=== PATIENT | female | born 1955 | race Caucasian/White ===

== ENCOUNTER 2018-01-26 00:26 | Emergency (ER) | payer MEDICARE, BC ==
[~2018-01-26] VITALS: Ht 162.6 cm; Wt 97.5 kg
[~2018-01-26 00:26] MED LIST: AMIT150T PO; BUPR-175 PO; HYDR10TA16 PO; LEXA20TA PO; LORA-392 PO; LORA10TA7 PO; LYRI150C PO; PREG75 PO; PRIN5TAB PO; REST15CA PO; WELL200T PO
[2018-01-26 00:33] VITALS: BP 156/72; PULSE 108; RESP 18; TEMP 98.1; O2SAT 98
[2018-01-26] MEDS ORDERED: HYDR-3583 PO (01:14)
[2018-01-26] MEDS ORDERED: BUPR150CR PO (01:14)
[2018-01-26] MEDS ORDERED: BIOT1000 PO (01:14)
[2018-01-26] MEDS ORDERED: DULO1CAP3 PO (01:14)
[2018-01-26] MEDS ORDERED: LISI-519 PO (01:14)
[2018-01-26] MEDS ORDERED: ASPI-183 PO (01:14)
[2018-01-26] MEDS ORDERED: ADVA250A INH (01:14)
[2018-01-26] MEDS ORDERED: DEXAMETHASONE SOD PHOS 4 MG/ML VIAL IM ONE (01:15)
[2018-01-26] MEDS ORDERED: KETOROLAC TROMETHAMINE 60 MG/2 ML (IM) VIAL IM ONE (01:15)
[2018-01-26] MEDS ORDERED: ORPHENADRINE INJ 60 MG/2 ML AMP IM ONE (01:15)
[2018-01-26 01:30] VITALS: BP 152/77; PULSE 98; RESP 16; O2SAT 97
--- NOTE | 2018-01-26 01:35 | RADRPT ---
EXAM DATE/TIME: 01/26/2018 01:14 [facility] COMPARISON: No previous studies available for comparison. INDICATIONS : Lower back pain. MEDICAL HISTORY : None. SURGICAL HISTORY : None. ENCOUNTER: Initial ACUITY: 1 day PAIN SCORE: 10/10 LOCATION: Lumbar spine. FINDINGS: 3 views of the lumbar spine demonstrate 5 nonrib-bearing lumbar vertebral bodies with mild rightward convex curvature. The bones are under mineralized. No fracture or compression deformity is present. T here is no anterolisthesis or retrolisthesis. Mild decreased disc height is present at L3-L4 and L4-L 5. There is facet hypertrophy at L4-L5. The visualized surrounding structures demonstrate no acute finding. Cholecystectomy clips are present . CONCLUSION: Mild dextroscoliosis with degenerative disc disease, as above. No acute lumbar spine abnormality is i dentified. Shaan Hurd MD on January 26, 2018 at 1:32 Board Certified Radiologist. This report was verified electronically.
[2018-01-26 02:01] LABS: BILIRUBIN, URINE NEG (NEG); BLOOD, URINE NEG (NEG); GLUCOSE,URINE NEG (NEG); KETONE, URINE NEG (NEG); NITRITE,URINE NEG (NEG); URINE COLOR YELLOW (YELLW/STRAW); URINE LEUKOCYTE ESTERASE TRACE (NEG)
[2018-01-26 02:14] LABS: SQUAMOUS EPITHELIAL CELL URINE 0-5 /hpf (0-5)
[2018-01-26 02:15] LABS: WBC, URINE 0-2 /hpf (0-5)
[2018-01-26 03:00] VITALS: BP 160/72; PULSE 102; RESP 16; O2SAT 96
[2018-01-26] MEDS ORDERED: ROBA750T PO (03:36)
[2018-01-26] MEDS ORDERED: MEDR4PAK PO (03:36)
[2018-01-26] MEDS ORDERED: TRAM50TA PO (03:36)
--- NOTE | 2018-01-26 03:40 | PD ---
HPI Chief Complaint: Pain: Acute or Chronic Time Seen by Provider: 01:05 Travel History International Travel<30 days: No Contact w/Intl Traveler<30days: No Traveled to known affect area: No History of Present Illness HPI 62-year-old female presents to the emergency department from home for evaluation of right-sided back pain since this past weekend. Patient states she has used ibuprofen and aspirin. Symptoms have been persistent and worsening. Patient denies any lower extremity paresthesia bladder or bowel dysfunction or saddle anesthesia. Patient denies any specific injury. Patient does report that approximately 2-3 weeks ago she did have a fall at that time she did sustain a wrist fracture and is being followed by an orthopedist in [place]. Patient's had no back pain since that time. Patient states she did take her prescription hydrocodone without symptom relief. Patient decided to drive herself to the emergency department for chronic pain exacerbation. The patient rates her pain 10/10 in intensity. Patient denies any fever chills nausea vomiting dysuria frequency urgency flank pain or hematuria. Patient denies any chest pain palpitations shortness of breath or abdominal pain. PFSH Past Medical History Narrative Medical Anxiety depression COPD left wrist fracture hypertension migraines cholecystectomy appendectomy hysterectomy; nursing notes reviewed Anxiety: Yes Depression: Yes COPD: Yes Diminished Hearing: No Fibromyalgia: Yes Hypertension: Yes Migraines: Yes Tetanus Vaccination: > 5 Years Influenza Vaccination: Yes : 2 Para: 2 Past Surgical History Abdominal Surgery: Yes (BENIGN MASS REMOVED) Appendectomy: Yes Cholecystectomy: Yes Hysterectomy: Yes Other Surgery: Yes (EXPLORATORY LAP) Social History Alcohol Use: No Tobacco Use: No Substance Use: No Allergies-Medications (Allergen,Severity, Reaction): Coded Allergies: levofloxacin (Unverified Allergy, Severe, Rash, 07/07/17) Reported Meds & Prescriptions Reported Meds & Active Scripts Active Medrol Dosepak (Methylprednisolone) 4 Mg Dspk 4 Mg PO DIRECTED Per Pharmacist direction Robaxin (Methocarbamol) 750 Mg Tab 750 Mg PO Q6HR Tramadol (Tramadol HCl) 50 Mg Tab 50 Mg PO Q6H PRN Reported Duloxetine DR (Duloxetine HCl) 60 Mg Capdr 60 Mg PO DAILY Advair Diskus Inh (Fluticasone-Salmeterol Inh) 250-50 Mcg/Blist Aer 1 Puff INH BID Rinse mouth after use. Aspirin 325 Mg Tab 325 Mg PO DAILY Biotin 1 Mg Tab 1,000 Mg PO DAILY Lisinopril 5 Mg Tab 5 Mg PO DAILY PRN Hydrocodone-Acetaminophen 10-325 mg Tab 1 Tab PO Q4H PRN Wellbutrin SR 12 HR (Bupropion HCl) 150 Mg Tab 150 Mg PO DAILY Review of Systems Except as stated in HPI: all other systems reviewed are Neg General / Constitutional: No: Fever, Chills HENT: No: Congestion Cardiovascular: No: Chest Pain or Discomfort Respiratory: No: Shortness of Breath Gastrointestinal: No: Nausea, Abdominal Pain Genitourinary: No: Dysuria, Flank Pain Musculoskeletal: Positive: Myalgias, Arthralgias, Pain (Right-sided low back pain) Skin: No Rash Neurologic: No: Weakness Psychiatric: No: Anxiety Hematologic/Lymphatic: No: Lymph Node Enlargement Physical Exam Narrative GENERAL: Well-developed well-nourished female in apparent discomfort no respiratory distress; GCS 15 SKIN: Warm and dry. HEAD: Atraumatic. Normocephalic. EYES: Pupils equal and round. No scleral icterus. No injection or drainage. ENT: No nasal bleeding or discharge. Mucous membranes pink and moist. NECK: Trachea midline. No JVD. CARDIOVASCULAR: Regular rate and rhythm. RESPIRATORY: No accessory muscle use. Clear to auscultation. Breath sounds equal bilaterally. GASTROINTESTINAL: Abdomen soft, non-tender, nondistended. Hepatic and splenic margins not palpable. MUSCULOSKELETAL: Extremities without clubbing, cyanosis, or edema. No obvious deformities. Negative straight leg raising bilaterally. Tenderness to palpation along the right SI joint and over the lower lumbar spine. No soft tissue swelling redness induration or fluctuance or ecchymosis noted. Mild right flank tenderness to percussion. NEUROLOGICAL: Awake and alert. No obvious cranial nerve deficits. Motor grossly within normal limits. Five out of 5 muscle strength in the arms and legs. DTRs 2+ and equal without clonus. Normal speech. PSYCHIATRIC: Appropriate mood and affect; insight and judgment normal. Data Data Last Documented VS Vital Signs Date Time Temp Pulse Resp B/P (MAP) Pulse Ox O2 Delivery O2 Flow Rate FiO2 01/26/18 03:59 01/26/18 03:00 102 16 96 Room Air 01/26/18 00:33 98.1 Orders Orders Spine, Lumbar - Ltd (Ap & Lat) (01/26/18 ) Dexamethasone Inj (Decadron Inj) (01/26/18 01:15) Ketorolac Inj (Toradol Inj) (01/26/18 01:15) Orphenadrine Inj (Norflex Inj) (01/26/18 01:15) Urinalysis - C+S If Indicated (01/26/18 01:06) Ct Abd/Pel W/O Iv Contrast (01/26/18 ) Ed Discharge Order (01/26/18 03:50) Labs Laboratory Tests Test 01/26/18 01:00 Urine Collection Type CLEAN CATCH Urine Color YELLOW Urine Turbidity CLEAR Urine pH 7.0 Urine Specific [place] 1.010 Urine Protein NEG mg/dL Urine Glucose (UA) NEG mg/dL Urine Ketones NEG mg/dL Urine Occult Blood NEG Urine Nitrite NEG Urine Bilirubin NEG Urine Urobilinogen 0.2 MG/DL Urine Leukocyte Esterase TRACE Urine WBC 0-2 /hpf Urine Squamous Epithelial Cells 0-5 /hpf Microscopic Urinalysis Comment CULT NOT INDICATED MDM Medical Decision Making Medical Screen Exam Complete: Yes Emergency Medical Condition: Yes Medical Record Reviewed: Yes Interpretation(s) UA: grossly wnl Last Impressions Lumbar Spine X-Ray 01/26/18 0000 Signed Impressions: Service Date/Time: Friday, January 26, 2018 01:14 - CONCLUSION: Mild dextroscoliosis with degenerative disc disease, as above. No acute lumbar spine abnormality is identified. Shaan Hurd MD Abdomen/Pelvis CT 01/26/18 0000 Signed Impressions: Service Date/Time: Friday, January 26, 2018 03:02 - CONCLUSION: 1. There are 2 nonobstructing right renal stones measuring up to 7 mm. No ureteral stones are present and there are no findings to indicate urinary obstruction. 2. There is an indeterminant 1.7 cm right lobe liver lesion that does not meet criteria for a cyst. Suggest correlating with prior imaging studies. If none are available suggest further characterization with liver protocol CT or MRI. 3. Nonacute findings include large hiatal hernia and mild atherosclerotic disease. Shaan Hurd MD Vital Signs Date Time Temp Pulse Resp B/P (MAP) Pulse Ox O2 Delivery O2 Flow Rate FiO2 01/26/18 03:59 01/26/18 03:00 102 16 160/72 (101) 96 Room Air 01/26/18 02:50 16 01/26/18 01:30 98 16 152/77 (102) 97 Room Air 01/26/18 00:48 16 01/26/18 00:33 98.1 108 18 156/72 (100) 98 Differential Diagnosis sciatica, DDD, HNP, sacroiliitis, renal colic, uti, aaa, no findings for cauda equina Narrative Course Patient administered Toradol 60 mg IM, decadron 8 mg IM and norflex 60 mg IM clinically improved; ua grossly wnl CT a/p: no obstructive uropathy Patient stable for outpatient management Procedures Procedure Narrative Last Impressions Lumbar Spine X-Ray 01/26/18 0000 Signed Impressions: Service Date/Time: Friday, January 26, 2018 01:14 - CONCLUSION: Mild dextroscoliosis with degenerative disc disease, as above. No acute lumbar spine abnormality is identified. Shaan Hurd MD Vital Signs Date Time Temp Pulse Resp B/P (MAP) Pulse Ox O2 Delivery O2 Flow Rate FiO2 01/26/18 03:00 102 16 160/72 (101) 96 Room Air 01/26/18 02:50 16 01/26/18 01:30 98 16 152/77 (102) 97 Room Air 01/26/18 00:48 16 01/26/18 00:33 98.1 108 18 156/72 (100) 98 UA: grossly wnl Diagnosis Primary Impression: Sciatica Qualified Codes: M54.31 - Sciatica, right side Additional Impressions: Nephrolithiasis Abnormal CT scan, liver Referrals: Primary Care Physician 1 day Patient Instructions: General Instructions Additional Instructions: Take medications as prescribed If taking tramadol for pain do not take hydrocodone Apply moist heat intermittently to low back Follow-up with your primary care provider as planned 1 day Return to the emergency department for any concerns or change in condition Med/Other Pt SpecificInfo: Prescription(s) given Scripts Methylprednisolone Dosepak (Medrol Dosepak) 4 Mg Dspk 4 MG PO DIRECTED, #1 DSPK 0 Refills Per Pharmacist direction Prov: Debra Crook MD 01/26/18 Methocarbamol (Robaxin) 750 Mg Tab 750 MG PO Q6HR for Muscle Spasm, #10 TAB 0 Refills Prov: Debra Crook MD 01/26/18 Tramadol (Tramadol) 50 Mg Tab 50 MG PO Q6H Y for PAIN, #7 TAB 0 Refills Prov: Debra Crook MD 01/26/18 Disposition: 01 DISCHARGE HOME Condition: Stable Debra Crook MD Jan 26, 2018 03:40
--- NOTE | 2018-01-26 03:47 | RADRPT ---
EXAM DATE/TIME: 01/26/2018 03:02 [facility] COMPARISON: No previous studies available for comparison. INDICATIONS : Right flank pain. ORAL CONTRAST: No oral contrast ingested. RADIATION DOSE: 16.46 CTDIvol (mGy) MEDICAL HISTORY : Hypertension. Chronic obstructive pulmonary disease. SURGICAL HISTORY : Appendectomy. Cholecystectomy.Hysterectomy. ENCOUNTER: Initial ACUITY: 1 day PAIN SCALE: 10/10 LOCATION: Right flank TECHNIQUE: Volumetric scanning of the abdomen and pelvis was performed. Using automated exposure control and ad justment of the mA and/or kV according to patient size, radiation dose was kept as low as reasonably achievable to obtain optimal diagnostic quality images. DICOM format image data is available electro nically for review and comparison. FINDINGS: LOWER LUNGS: The visualized lower lungs are clear. LIVER: There is a low-density lesion in the right lobe measuring 10 mm with density measurements consistent with a cyst and an additional low-density lesion in the right posterior liver measuring 17 mm with [place] measurements of 24. Multiple cholecystectomy clips are present in the gallbladder fossa. Th ere is no dilation of the biliary tree. SPLEEN: Normal size without lesion. PANCREAS: Within normal limits. KIDNEYS: Normal in size and shape. There is no mass or hydronephrosis. There are 2 nonobstructing right renal stones measuring 7 mm and 3 mm. ADRENAL GLANDS: Within normal limits. VASCULAR: There is no aortic aneurysm. There is mild atherosclerotic disease. BOWEL/MESENTERY: The stomach, small bowel, and colon demonstrate no acute abnormality. There is no free intraperitone al air or fluid. A large hiatal hernia is present. ABDOMINAL WALL: Within normal limits. RETROPERITONEUM: There is no lymphadenopathy. BLADDER: No wall thickening or mass. REPRODUCTIVE: Uterus is absent. INGUINAL: There is no lymphadenopathy or hernia. MUSCULOSKELETAL: There are degenerative changes of the lumbar spine. No acute osseous abnormality is seen. There is a bone island in the left sacrum. CONCLUSION: 1. There are 2 nonobstructing right renal stones measuring up to 7 mm. No ureteral stones are present and there are no findings to indicate urinary obstruction. 2. There is an indeterminant 1.7 cm right lobe liver lesion that does not meet criteria for a cyst. S uggest correlating with prior imaging studies. If none are available suggest further characterization with liver protocol CT or MRI. 3. Nonacute findings include large hiatal hernia and mild atherosclerotic disease. Shaan Hurd MD on January 26, 2018 at 3:39 Board Certified Radiologist. This report was verified electronically.
== END 2018-01-26 04:01 | disposition home or self-care (01) ==
LOC: PHED 00:26
DX: M54.31 Sciatica, right side (principal); N20.0 Calculus of kidney; R93.2 Abnormal findings on diagnostic imaging of liver and biliary tract; I10 Essential (primary) hypertension; J44.9 Chronic obstructive pulmonary disease, unspecified; M79.7 Fibromyalgia; F41.9 Anxiety disorder, unspecified; F32.9 Major depressive disorder, single episode, unspecified; Z88.8 Allergy status to other drugs, medicaments and biological substances; Z79.82 Long term (current) use of aspirin; Z79.899 Other long term (current) drug therapy
CPT/HCPCS: 72100; 74176; 81001; 96372; 99285; J1100; J1885; J2360

== ENCOUNTER 2018-01-26 18:12 | Inpatient (IN) | payer MEDICARE, BC ==
[~2018-01-26] VITALS: Ht 162.6 cm; Wt 72.5 kg
[~2018-01-26 18:12] MED LIST changes: +ADVA250A INH; +ASPI-183 PO; +BIOT1000 PO; +BUPR150CR PO; +DULO1CAP3 PO; +HYDR-3583 PO; +LISI-519 PO; +MEDR4PAK PO; +ROBA750T PO; +TRAM50TA PO
[2018-01-26 18:59] VITALS: BP 188/88; PULSE 112; RESP 24; TEMP 98.7; O2SAT 98
[2018-01-26 21:35] VITALS: BP 168/86; PULSE 104; RESP 22; O2SAT 98
[2018-01-26] MEDS ORDERED: ONDANSETRON HCL 4 MG/2 ML VIAL IV PUSH ONE (21:45)
[2018-01-26] MEDS ORDERED: SODIUM CHLOR 0.9% 1000 ML INJ 1,000 ML IV ONE (21:45)
[2018-01-26] MEDS ORDERED: MORPHINE SULFATE 4 MG/ML INJ IV PUSH ONE (21:45)
--- NOTE | 2018-01-26 21:46 | PD ---
HPI Chief Complaint: Back/ Neck Pain or Injury Time Seen by Provider: 21:24 Travel History International Travel<30 days: No Contact w/Intl Traveler<30days: No Traveled to known affect area: No History of Present Illness HPI 62-year-old white female presents emergency department with complaints of right lower back pain with radiation into her right leg. The patient states that her pain is been present now for the past 4 days. It has been nontraumatic. Worse with bending and movement. She was seen at the emergency department at [facility] last evening around 12:30 PM. She had a CAT scan of the abdomen as well as x-rays. Patient was discharged home with steroids, and Ultram. The patient states that she is taking her medications but has had no relief. She states the pain is severe. She has associated nausea but no vomiting. She states the pain is making her feel sick. She denies any fever chills, abdominal pain, diarrhea, dysuria, frequency or hematuria. No rashes or lesions. PFSH Past Medical History Anxiety: Yes Depression: Yes COPD: Yes Diminished Hearing: No Fibromyalgia: Yes Hypertension: Yes Migraines: Yes ?: Not : 2 Para: 2 Past Surgical History Abdominal Surgery: Yes (BENIGN MASS REMOVED) Appendectomy: Yes Cholecystectomy: Yes Hysterectomy: Yes Tonsillectomy: Yes Other Surgery: Yes (EXPLORATORY LAP) Social History Alcohol Use: Yes ("MAYBE ONCE A MONTH") Tobacco Use: No Substance Use: No Allergies-Medications (Allergen,Severity, Reaction): Coded Allergies: levofloxacin (Unverified Allergy, Severe, Rash, 07/07/17) Reported Meds & Prescriptions Reported Meds & Active Scripts Active Medrol Dosepak (Methylprednisolone) 4 Mg Dspk 4 Mg PO DIRECTED Per Pharmacist direction Robaxin (Methocarbamol) 750 Mg Tab 750 Mg PO Q6HR Tramadol (Tramadol HCl) 50 Mg Tab 50 Mg PO Q6H PRN Reported Duloxetine DR (Duloxetine HCl) 60 Mg Capdr 60 Mg PO DAILY Advair Diskus Inh (Fluticasone-Salmeterol Inh) 250-50 Mcg/Blist Aer 1 Puff INH BID Rinse mouth after use. Aspirin 325 Mg Tab 325 Mg PO DAILY Biotin 1 Mg Tab 1,000 Mg PO DAILY Lisinopril 5 Mg Tab 5 Mg PO DAILY PRN Hydrocodone-Acetaminophen 10-325 mg Tab 1 Tab PO Q4H PRN Wellbutrin SR 12 HR (Bupropion HCl) 150 Mg Tab 150 Mg PO DAILY Review of Systems Except as stated in HPI: all other systems reviewed are Neg Physical Exam Narrative GENERAL: Well-developed, well-nourished in no apparent distress. Nontoxic appearing. HEAD: Normocephalic, atraumatic. EYES: Pupils equal round and reactive. Extraocular motions intact. No scleral icterus. No injection or drainage. ENT: Nose clear. Throat without erythema, tonsillar hypertrophy or exudate. Uvula midline. Airway patent. NECK: Trachea midline. Supple, nontender, moves head freely. No central bony tenderness or spasm. CARDIOVASCULAR: Regular rate and rhythm without murmurs, gallops, or rubs. RESPIRATORY: Clear to auscultation. Breath sounds equal bilaterally. No wheezes , rales, or rhonchi. GASTROINTESTINAL: Abdomen soft, non-tender, nondistended. No hepato-splenomegaly , or palpable masses. No guarding. EXTREMITIES: No clubbing, cyanosis, or edema. No joint tenderness. BACK: Patient has pain in the right SI and right buttocks. She has a positive straight leg raise on the right. She has intact sensation with good distal pulses. No saddle anesthesia. Without deformity. No flank tenderness. NEUROLOGICAL: Awake, alert and oriented x 3 .Cranial nerves grossly intact. Motor and sensory grossly within normal limits. Normal speech. No central bony tenderness to palpation of the dorsal lumbar spine. Data Data Last Documented VS Vital Signs Date Time Temp Pulse Resp B/P (MAP) Pulse Ox O2 Delivery O2 Flow Rate FiO2 01/26/18 21:35 104 22 168/86 (113) 98 Room Air 01/26/18 18:59 98.7 Orders Orders Complete Blood Count With Diff (01/26/18 21:34) Basic Metabolic Panel (Bmp) (01/26/18 21:34) Ua Includes Microscopic (01/26/18 21:34) Ct Lumb Spine W/O Contrast (01/26/18 21:34) Sodium Chlor 0.9% 1000 Ml Inj (Ns 1000 M (01/26/18 21:45) Ondansetron Inj (Zofran Inj) (01/26/18 21:45) Morphine Inj (Morphine Inj) (01/26/18 21:45) Urine Culture (01/26/18 21:55) Electrocardiogram (01/26/18 22:44) Prothrombin Time / Inr (Pt) (01/26/18 22:44) Act Partial Throm Time (Ptt) (01/26/18 22:44) Ecg Monitoring (01/26/18 22:44) Type And Screen (01/26/18 22:44) Hemoglobin (Hgb) (01/26/18 22:56) Hematocrit (Hct) (01/26/18 22:56) Red Blood Cells (Rbc) (01/26/18 23:28) Pantoprazole Inj (Protonix Inj) (01/26/18 23:45) Admit Order (Ed Use Only) (01/26/18 ) Clinical Quality Manager / Telemetry DARREN.Q8H (01/26/18 23:41) Vital Signs (Adult) Q4H (01/26/18 23:41) Diet Npo (01/27/18 Breakfast) Activity Oob With Assistance (01/26/18 23:41) Notify Dr: Other (01/26/18 23:41) Labs Laboratory Tests Test 01/26/18 21:45 01/26/18 21:55 01/26/18 23:00 White Blood Count 13.7 TH/MM3 Red Blood Count 2.57 MIL/MM3 Hemoglobin 5.9 GM/DL 5.9 GM/DL Hematocrit 18.3 % 19.1 % Mean Corpuscular Volume 71.5 FL Mean Corpuscular Hemoglobin 22.8 PG Mean Corpuscular Hemoglobin Concent 31.9 % Red Cell Distribution Width 18.5 % Platelet Count 442 TH/MM3 Mean Platelet Volume 7.1 FL Neutrophils (%) (Auto) 89.7 % Lymphocytes (%) (Auto) 6.5 % Monocytes (%) (Auto) 3.8 % Eosinophils (%) (Auto) 0.0 % Basophils (%) (Auto) 0.0 % Neutrophils # (Auto) 12.3 TH/MM3 Lymphocytes # (Auto) 0.9 TH/MM3 Monocytes # (Auto) 0.5 TH/MM3 Eosinophils # (Auto) 0.0 TH/MM3 Basophils # (Auto) 0.0 TH/MM3 CBC Comment AUTO DIFF Differential Comment AUTO DIFF CONFIRMED Platelet Estimate HIGH Platelet Morphology Comment NORMAL Ovalocytes 1+ Blood Urea Nitrogen 16 MG/DL Creatinine 1.04 MG/DL Random Glucose 106 MG/DL Calcium Level 8.8 MG/DL Sodium Level 143 MEQ/L Potassium Level 3.3 MEQ/L Chloride Level 109 MEQ/L Carbon Dioxide Level 25.6 MEQ/L Anion Gap 8 MEQ/L Estimat Glomerular Filtration Rate 53 ML/MIN Urine Color YELLOW Urine Turbidity CLEAR Urine pH 6.0 Urine Specific [place] 1.025 Urine Protein TRACE mg/dL Urine Glucose (UA) NEG mg/dL Urine Ketones NEG mg/dL Urine Occult Blood NEG Urine Nitrite NEG Urine Bilirubin NEG Urine Urobilinogen LESS THAN 2.0 MG/DL Urine Leukocyte Esterase LARGE Urine RBC 6 /hpf Urine WBC 19 /hpf Urine Squamous Epithelial Cells 4 /hpf Urine Mucus FEW /lpf Microscopic Urinalysis Comment CULTURE INDICATED Prothrombin Time 10.5 SEC Prothromb Time International Ratio 1.0 RATIO Activated Partial Thromboplast Time 26.4 SEC [facility] Medical Decision Making Medical Screen Exam Complete: Yes Emergency Medical Condition: Yes Medical Record Reviewed: Yes Interpretation(s) EKG: Sinus tachycardia with a ventricular rate of 114. Diffuse nonspecific ST- T wave changes. No ST elevation. Normal intervals. Laboratory Tests Test 01/26/18 21:45 01/26/18 21:55 01/26/18 23:00 White Blood Count 13.7 TH/MM3 Red Blood Count 2.57 MIL/MM3 Hemoglobin 5.9 GM/DL 5.9 GM/DL Hematocrit 18.3 % 19.1 % Mean Corpuscular Volume 71.5 FL Mean Corpuscular Hemoglobin 22.8 PG Mean Corpuscular Hemoglobin Concent 31.9 % Red Cell Distribution Width 18.5 % Platelet Count 442 TH/MM3 Mean Platelet Volume 7.1 FL Neutrophils (%) (Auto) 89.7 % Lymphocytes (%) (Auto) 6.5 % Monocytes (%) (Auto) 3.8 % Eosinophils (%) (Auto) 0.0 % Basophils (%) (Auto) 0.0 % Neutrophils # (Auto) 12.3 TH/MM3 Lymphocytes # (Auto) 0.9 TH/MM3 Monocytes # (Auto) 0.5 TH/MM3 Eosinophils # (Auto) 0.0 TH/MM3 Basophils # (Auto) 0.0 TH/MM3 CBC Comment AUTO DIFF Differential Comment AUTO DIFF CONFIRMED Platelet Estimate HIGH Platelet Morphology Comment NORMAL Ovalocytes 1+ Blood Urea Nitrogen 16 MG/DL Creatinine 1.04 MG/DL Random Glucose 106 MG/DL Calcium Level 8.8 MG/DL Sodium Level 143 MEQ/L Potassium Level 3.3 MEQ/L Chloride Level 109 MEQ/L Carbon Dioxide Level 25.6 MEQ/L Anion Gap 8 MEQ/L Estimat Glomerular Filtration Rate 53 ML/MIN Urine Color YELLOW Urine Turbidity CLEAR Urine pH 6.0 Urine Specific [place] 1.025 Urine Protein TRACE mg/dL Urine Glucose (UA) NEG mg/dL Urine Ketones NEG mg/dL Urine Occult Blood NEG Urine Nitrite NEG Urine Bilirubin NEG Urine Urobilinogen LESS THAN 2.0 MG/DL Urine Leukocyte Esterase LARGE Urine RBC 6 /hpf Urine WBC 19 /hpf Urine Squamous Epithelial Cells 4 /hpf Urine Mucus FEW /lpf Microscopic Urinalysis Comment CULTURE INDICATED Prothrombin Time 10.5 SEC Prothromb Time International Ratio 1.0 RATIO Activated Partial Thromboplast Time 26.4 SEC Differential Diagnosis MDM: High Differential diagnoses: AAA,Fracture, sprain, strain, HNP, nerve or vascular injury, epidural abscess, pilonidal cyst, pyelonephritis, UTI, nephrolithiasis, ureterolithiasis Narrative Course I have spoken with the body technician/painter regarding this patient. They will be able to do reconstruction images of the lumbar spine from her CAT scan of her abdomen and pelvis yesterday. IV access is obtained. We will perform routine laboratory tests including CBC, chemistry, UA. Patient is given Zofran 4 mg IV and 4 mg of morphine IV. The patient's hemoglobin is 5.9. Rectal exam was negative. Patient's repeat H& H does confirm a hemoglobin of 5.9. 2 units of packed red blood cells have been ordered. I have discussed the case with Dr. Singh who is agreed to admit the patient. She will go ahead and add in anemia evaluation laboratory testing prior to administration of blood. Patient continues to complain of pain. She is given 4 mg of morphine and 1 mg of Ativan IV. This is severe anemia, acute back pain Procedures EKG Prior to Arrival: No HemaPrompt Point of Care Internal Pos. & Neg. Controls: Passed Fecal Specimen Occult Blood: Negative Diagnosis Primary Impression: Severe anemia Additional Impression: Acute back pain Qualified Codes: M54.41 - Lumbago with sciatica, right side Condition: Stable Chidi Campo Jan 26, 2018 21:46
[2018-01-26 22:20] LABS: BILIRUBIN, URINE NEG (NEG); BLOOD, URINE NEG (NEG); GLUCOSE,URINE NEG (NEG); KETONE, URINE NEG (NEG); MUCUS URINE FEW /lpf (OCC); NITRITE,URINE NEG (NEG); SQUAMOUS EPITHELIAL CELL URINE 4 /hpf (0-5); URINE COLOR YELLOW (YELLW/STRAW); URINE LEUKOCYTE ESTERASE LARGE (NEG)
[2018-01-26 22:24] LABS: AUTOMATED NEUTROPHIL # 12.3 TH/MM3 (1.8-7.7); LYMPH % 6.5 % (9.0-44.0); LYMPHOCYTE # 0.9 TH/MM3 (1.0-4.8); MEAN CELL VOLUME 71.5 FL (80.0-100.0); MEAN CORPUSCULAR HEMOGLOBIN 22.8 PG (27.0-34.0); MEAN CORPUSCULAR HGB CONC 31.9 % (32.0-36.0); MEAN PLATELET VOLUME 7.1 FL (7.0-11.0); MONO % 3.8 % (0.0-8.0); MONOCYTE # 0.5 TH/MM3 (0-0.9); NEUT % 89.7 % (16.0-70.0); PLATELET COUNT 442 TH/MM3 (150-450); RED BLOOD COUNT 2.57 MIL/MM3 (4.00-5.30); RED CELL DISTRIBUTION WIDTH 18.5 % (11.6-17.2); WHITE BLOOD COUNT 13.7 TH/MM3 (4.0-11.0)
[2018-01-26 22:33] LABS: BICARBONATE 25.6 MEQ/L (21.0-32.0); CALCIUM 8.8 MG/DL (8.5-10.1); CREATININE 1.04 MG/DL (0.50-1.00)
[2018-01-26 22:42] LABS: HEMATOCRIT 18.3 % (35.0-46.0); HEMOGLOBIN 5.9 GM/DL (11.6-15.3)
--- NOTE | 2018-01-26 22:44 | RADRPT ---
EXAM DATE/TIME: 01/26/2018 03:02 [facility] COMPARISON: SPINE LUMBAR LTD (AP & LAT), January 26, 2018, 1:14. INDICATIONS : Lower back pain. RADIATION DOSE: ; Reconstructed from previous dataset, no dose MEDICAL HISTORY : Hypertension. Chronic obstructive pulmonary disease. Radiculopathy. SURGICAL HISTORY : Appendectomy. Cholecystectomy.Hysterectomy. ENCOUNTER: Initial ACUITY: 2 days PAIN SCALE: 7/10 LOCATION: Lumbar spine TECHNIQUE: Volumetric scanning of the lumbar spine was performed. Multiplanar reconstructions in the sagittal, coronal and oblique axial planes were performed. Using automated exposure control and adjustment of the mA and/or kV according to patient size, radiation dose was kept as low as reasonably achievable t o obtain optimal diagnostic quality images. DICOM format image data is available electronically for review and comparison. FINDINGS: There is normal alignment of vertebral bodies of the lumbar spine and preservation of vertebral body height. Minimal curvature towards the right. Evidence of osteopenia with mild vertical striations o f trabecular pattern. No evidence of fracture. There is a bone island in the left body of the sacru m adjacent to the 1st arcuate foramen. There is broad-based bulging or protrusion of the L3-4 disc c ausing moderate spinal stenosis with AP dimension of the thecal sac measuring 5 mm. This protrusion extends to the neural foramen on the right side. There is also mild central bulging of the L4-5 disc causing minimal flattening of the ventral thecal sac. CONCLUSION: 1. No evidence of compression deformity or spondylolisthesis. 2. Spinal stenosis at the L3-4 level due to a combination of central disc protrusion and facet joint hypertrophy. Benito Lee MD on January 26, 2018 at 22:41 Board Certified Radiologist. This report was verified electronically.
[2018-01-26 23:21] LABS: HEMATOCRIT 19.1 % (35.0-46.0); HEMOGLOBIN 5.9 GM/DL (11.6-15.3)
[2018-01-26 23:26] LABS: OVALOCYTES 1+ (NORMAL)
[2018-01-26 23:36] LABS: PROTHROMBIN TIME - PATIENT 10.5 SEC (9.8-11.6)
[2018-01-26] MEDS ORDERED: PANTOPRAZOLE SODIUM 40 MG VIAL IV PUSH ONE (23:45)
[2018-01-27] VITALS (18 sets, daily range): BP systolic 135–184; BP diastolic 68–100; PULSE 86–119; RESP 16–20; TEMP 98–98.5; O2SAT 93–98
[2018-01-27] MEDS ORDERED: LORazepam 2 MG/ML VIAL IV PUSH ONE
[2018-01-27] MEDS ORDERED: MORPHINE SULFATE 4 MG/ML INJ IV PUSH ONE
[2018-01-27] MEDS ORDERED: SENNOSIDES 8.6 MG TAB PO PRN (00:45)
[2018-01-27] MEDS ORDERED: BISACODYL 10 MG SUPP RECTAL PRN (00:45)
[2018-01-27] MEDS ORDERED: MAGNESIUM HYDROXIDE SUSP 30 ML CUP PO PRN (00:45)
[2018-01-27] MEDS ORDERED: ACETAMINOPHEN 325 MG TAB PO PRN (00:45)
[2018-01-27] MEDS ORDERED: LACTULOSE SYRUP 20 GM/30 ML CUP PO PRN (00:45)
[2018-01-27] MEDS ORDERED: SODIUM CHLORIDE 0.9% FLUSH 10 ML FLUSH IV FLUSH PRN (00:45)
[2018-01-27] MEDS ORDERED: NALOXONE HCL 0.4 MG/ML AMP IV PUSH PRN (00:45)
[2018-01-27 00:54] LABS: % SATURATION IRON PROFILE 2.4 % (20-50); IRON (FE) 10 MCG/DL (50-170); TOTAL IRON BINDING CAPACITY 413 MCG/DL (250-450)
[2018-01-27] MEDS ORDERED: POTASSIUM CHLORIDE 20 MEQ CONTROLLED RELEASE TAB PO ONE (03:15)
--- NOTE | 2018-01-27 03:21 | HHI.HP ---
[facility] Licha Duncan MD Admission Diagnosis SEVERE ANEMA, ACUTE BACK PAIN Diagnoses: Travel History International Travel<30 Days: No Contact w/Intl Traveler <30 Da: No Traveled to Known Affected Are: No History of Present Illness 62-year-old female with a past medical history significant for COPD, aortic stenosis, fibromyalgia, hypertension, GERD and migraines presents to the emergency department for evaluation of back pain. The patient reports she has had severe right-sided lower back pain that radiates down her right buttock and right leg for approximately 3 days. She reports associated insomnia secondary to the pain. She is moaning and writhing around in her bed. Lose all 4 extremities spontaneously. The patient was found to be severely anemic. She denies any weakness or dizziness. No shortness of breath or chest pain. Denies any dark tarry stools. Hemoccult negative in the ED. Does endorse a nosebleed 2 nights ago. Takes aspirin 325 daily. Denies nausea/vomiting. No lateralizing signs/symptoms. Review of Systems Except as stated in HPI: all other systems reviewed are Neg Past Family Social History Past Medical History COPD Aortic stenosis Fibromyalgia Hypertension GERD Migraines Past Surgical History Tonsillectomy Cholecystectomy Total abdominal hysterectomy Appendectomy Exploratory laparotomy Right hip repair Reported Medications Reported Meds & Active Scripts Active Medrol Dosepak (Methylprednisolone) 4 Mg Dspk 4 Mg PO DIRECTED Per Pharmacist direction Robaxin (Methocarbamol) 750 Mg Tab 750 Mg PO Q6HR Tramadol (Tramadol HCl) 50 Mg Tab 50 Mg PO Q6H PRN Reported Duloxetine DR (Duloxetine HCl) 60 Mg Capdr 60 Mg PO DAILY Advair Diskus Inh (Fluticasone-Salmeterol Inh) 250-50 Mcg/Blist Aer 1 Puff INH BID Rinse mouth after use. Aspirin 325 Mg Tab 325 Mg PO DAILY Biotin 1 Mg Tab 1,000 Mg PO DAILY Lisinopril 5 Mg Tab 5 Mg PO DAILY PRN Hydrocodone-Acetaminophen 10-325 mg Tab 1 Tab PO Q4H PRN Wellbutrin SR 12 HR (Bupropion HCl) 150 Mg Tab 150 Mg PO DAILY Allergies: Coded Allergies: levofloxacin (Unverified Allergy, Severe, Rash, 07/07/17) Family History Father with CAD Social History Rare alcohol. Denies alcohol or illicit drugs. Physical Exam Vital Signs Vital Signs Date Time Temp Pulse Resp B/P (MAP) Pulse Ox O2 Delivery O2 Flow Rate FiO2 01/27/18 03:01 100 18 170/84 96 01/27/18 02:37 105 18 167/87 96 01/27/18 02:25 98.5 112 18 171/87 95 01/27/18 02:18 102 18 174/83 98 01/27/18 00:00 111 20 184/82 (116) 97 Room Air 01/26/18 21:35 104 22 168/86 (113) 98 Room Air 01/26/18 18:59 98.7 112 24 188/88 (121) 98 Physical Exam GENERAL: female, lying in bed, moaning SKIN: No rashes, ecchymoses or lesions. Cool and dry. HEAD: Atraumatic. Normocephalic. No temporal or scalp tenderness. EYES: Pupils equal round and reactive. Extraocular motions intact. No scleral icterus. No injection or drainage. ENT: Nose without bleeding, purulent drainage or septal hematoma. Throat without erythema, tonsillar hypertrophy or exudate. Uvula midline. Airway patent. NECK: Trachea midline. No JVD or lymphadenopathy. Supple, nontender, no meningeal signs. CARDIOVASCULAR: Regular rate and rhythm without murmurs, gallops, or rubs. RESPIRATORY: Clear to auscultation. Breath sounds equal bilaterally. No wheezes , rales, or rhonchi. GASTROINTESTINAL: Abdomen soft, non-tender, nondistended. No hepato-splenomegaly , or palpable masses. No guarding. MUSCULOSKELETAL: Extremities without clubbing, cyanosis, or edema. No joint tenderness, effusion, or edema noted. No calf tenderness. Negative Homans sign bilaterally. NEUROLOGICAL: Awake and alert. Cranial nerves II through XII intact. Motor and sensory grossly within normal limits. Normal speech. Patient's participation in the strength exam is questionable therefore I am unable to evaluate strength at this time. Moves all 4 extremities spontaneously. Laboratory Laboratory Tests Test 01/26/18 21:45 01/26/18 21:55 01/26/18 23:00 White Blood Count 13.7 Red Blood Count 2.57 Hemoglobin 5.9 5.9 Hematocrit 18.3 19.1 Mean Corpuscular Volume 71.5 Mean Corpuscular Hemoglobin 22.8 Mean Corpuscular Hemoglobin Concent 31.9 Red Cell Distribution Width 18.5 Platelet Count 442 Mean Platelet Volume 7.1 Neutrophils (%) (Auto) 89.7 Lymphocytes (%) (Auto) 6.5 Monocytes (%) (Auto) 3.8 Eosinophils (%) (Auto) 0.0 Basophils (%) (Auto) 0.0 Neutrophils # (Auto) 12.3 Lymphocytes # (Auto) 0.9 Monocytes # (Auto) 0.5 Eosinophils # (Auto) 0.0 Basophils # (Auto) 0.0 CBC Comment AUTO DIFF Differential Comment AUTO DIFF CONFIRMED Platelet Estimate HIGH Platelet Morphology Comment NORMAL Ovalocytes 1+ Blood Urea Nitrogen 16 Creatinine 1.04 Random Glucose 106 Calcium Level 8.8 Sodium Level 143 Potassium Level 3.3 Chloride Level 109 Carbon Dioxide Level 25.6 Anion Gap 8 Estimat Glomerular Filtration Rate 53 Iron Level 10 Total Iron Binding Capacity 413 Percent Iron Saturation 2.4 Vitamin B12 Level 280 Urine Color YELLOW Urine Turbidity CLEAR Urine pH 6.0 Urine Specific [place] 1.025 Urine Protein TRACE Urine Glucose (UA) NEG Urine Ketones NEG Urine Occult Blood NEG Urine Nitrite NEG Urine Bilirubin NEG Urine Urobilinogen LESS THAN 2.0 Urine Leukocyte Esterase LARGE Urine RBC 6 Urine WBC 19 Urine Squamous Epithelial Cells 4 Urine Mucus FEW Microscopic Urinalysis Comment CULTURE INDICATED Blood Smear Pathologist Review Prothrombin Time 10.5 Prothromb Time International Ratio 1.0 Activated Partial Thromboplast Time 26.4 Date/Time Source Procedure Growth Status 01/26/18 21:55 Urine Clean Catch Urine Culture Pending Received Result Diagram: 01/26/18 2300 01/26/185 Caprini VTE Risk Assessment Caprini VTE Risk Assessment: Mod/High Risk (score >= 2) Caprini Risk Assessment Model Point Value = 1 Point Value = 2 Point Value = 3 Point Value = 5 Age 41-60 Minor surgery BMI > 25 kg/m2 Swollen legs Varicose veins or History of unexplained or recurrent spontaneous Oral contraceptives or hormone replacement Sepsis (< 1 month) Serious lung disease, including pneumonia (< 1 month) Abnormal pulmonary function Acute myocardial infarction Congestive heart failure (< 1 month) History of inflammatory bowel disease Medical patient at bed rest Age 61-74 Arthroscopic surgery Major open surgery (> 45 min) Laparoscopic surgery (> 45 min) Malignancy Confined to bed (> 72 hours) Immobilizing plaster cast Central venous access Age >= 75 History of VTE Family history of VTE Factor V Leiden Prothrombin [id number] Lupus anticoagulant Anticardiolipin antibodies Elevated serum homocysteine Heparin-induced thrombocytopenia Other congenital or acquired thrombophilia Stroke (< 1 month) Elective arthroplasty Hip, pelvis, or leg fracture Acute spinal cord injury (< 1 month) Prophylaxis Regimen Total Risk Factor Score Risk Level Prophylaxis Regimen 0-1 Low Early ambulation 2 Moderate Order ONE of the following: *Sequential Compression Device (SCD) *Heparin 5000 units SQ BID 3-4 Higher Order ONE of the following medications: *Heparin 5000 units SQ TID *Enoxaparin/Lovenox 40 mg SQ daily (WT < 150 kg, CrCl > 30 mL/min) *Enoxaparin/Lovenox 30 mg SQ daily (WT < 150 kg, CrCl > 10-29 mL/min) *Enoxaparin/Lovenox 30 mg SQ BID (WT < 150 kg, CrCl > 30 mL/min) AND/OR *Sequential Compression Device (SCD) 5 or more Highest Order ONE of the following medications: *Heparin 5000 units SQ TID (Preferred with Epidurals) *Enoxaparin/Lovenox 40 mg SQ daily (WT < 150 kg, CrCl > 30 mL/min) *Enoxaparin/Lovenox 30 mg SQ daily (WT < 150 kg, CrCl > 10-29 mL/min) *Enoxaparin/Lovenox 30 mg SQ BID (WT < 150 kg, CrCl > 30 mL/min) AND *Sequential Compression Device (SCD) Assessment and Plan Assessment and Plan Assessment/plan: 1. Severe anemia H&H 5.9/18.3 Transfuse 2 units packed red blood cells Monitor H&H Iron studies, B12 pending Peripheral smear pending Pending results of initial studies, patient may benefit from hematology consult 2. Low back pain/sciatica Percocet for pain, Flexeril CT of the lumbar spine showed no evidence of compression deformity or spondylolisthesis Central disc protrusion at the level of L3-4 She will need outpatient follow-up, explained to the patient who expressed understanding 3. Hypertension/fibromyalgia/GERD/COPD Continue home medications FEN Heart healthy diet Electrolytes: Status post repletion of potassium, follow-up BMP Holding pharmacologic anticoagulation for severe anemia Physician Certification 2 Midnight Certification Type: Admission for Inpatient Services Order for Inpatient Services The services are ordered in accordance with Medicare regulations or non- Medicare payer requirements, as applicable. In the case of services not specified as inpatient-only, they are appropriately provided as inpatient services in accordance with the 2-midnight benchmark. Estimated LOS (days): 2 2 days is the estimated time the patient will need to remain in the hospital, assuming treatment plan goals are met and no additional complications. Post-Hospital Plan: Not yet determined Kaykay Singh MD Jan 27, 2018 03:21
[2018-01-27] MEDS: oxyCODONE/ACETAMINOPHEN 10 MG/325 MG TAB PO PRN ×5 (03:46→22:44)
[2018-01-27] MEDS ORDERED: LISINOPRIL 5 MG TAB PO PRN (05:45)
[2018-01-27] MEDS: LISINOPRIL 5 MG TAB PO SCH ×2 (05:49→09:44)
[2018-01-27] MEDS ORDERED: ASPIRIN 325 MG TAB PO SCH (09:00)
[2018-01-27] MEDS: CYCLOBENZAPRINE HCL 10 MG TAB PO PRN (09:43)
[2018-01-27] MEDS: buPROPion HCL 150 MG SUSTAINED RELEASE TAB PO SCH (09:43)
[2018-01-27] MEDS: DOCUSATE SODIUM 50 MG/SENNA 8.6 MG TAB PO SCH ×2 (09:44→20:25)
[2018-01-27] MEDS: DULoxetine HCl DR 60 MG CAP PO SCH (09:44)
[2018-01-27] MEDS: BUDESONIDE-FORMOTEROL 160/4.5 MCG INHALER INH SCH ×2 (09:44→20:25)
[2018-01-27] MEDS: SODIUM CHLORIDE 0.9% FLUSH 10 ML FLUSH IV FLUSH SCH ×2 (09:45→20:25)
--- NOTE | 2018-01-27 11:01 | EKG ---
Date Performed: 01/26/2018 Time Performed: 22:54:38 PTAGE: 62 years EKG: SINUS TACHYCARDIA NONSPECIFIC ST & T-WAVE ABNORMALITY ABNORMAL RHYTHM ECG PREVIOUS TRACING : 10/23/2009 11.10 DOCTOR: Black Acosta Interpretating Date/Time 01/27/2018 11:01:03
[2018-01-27 11:29] LABS: HEMATOCRIT 28.1 % (35.0-46.0); HEMOGLOBIN 9.1 GM/DL (11.6-15.3)
--- NOTE | 2018-01-27 12:06 | PD.CONS ---
HPI History of Present Illness This is a 62 year old female who presented to the ER for back pain. GI has been consulted for hgb 5.8 on admission. She admits heartburn and indigestion that is worse in the last month. She takes prilosec and tums for her reflux. She has been taking dialy aspirin and occasional ibuprofen for her back. SHe denies frequent NSAID use. Denies black tarry stool, teressa blood in stool, abd pain, vomiting. No prior hx GIB or ulcers. She had an EGD [address] Bang, gastritis was finding. Last colonoscopy at that time as well and no abnormal findings per pt. (Sarah Maldonado) PFSH Past Medical History COPD Aortic stenosis Fibromyalgia Hypertension GERD Migraines Past Surgical History Tonsillectomy Cholecystectomy Total abdominal hysterectomy Appendectomy Exploratory laparotomy Right hip repair (Sarah Maldonado) Coded Allergies: levofloxacin (Unverified Allergy, Severe, Rash, 07/07/17) Family History Father with CAD Social History Rare alcohol. Denies alcohol or illicit drugs. (Sarah Maldonado) Review of Systems Constitutional: DENIES: Weight loss Endocrine: DENIES: Polydipsia Eyes: DENIES: Blurred vision Ears, nose, mouth, throat: DENIES: Hearing loss Respiratory: DENIES: Cough Cardiovascular: DENIES: Chest pain Gastrointestinal: COMPLAINS OF: Nausea, DENIES: Abdominal pain, Black stools, Bloody stools, Vomiting, Hematemesis Genitourinary: DENIES: Hematuria Musculoskeletal: COMPLAINS OF: Back pain Integumentary: DENIES: Abnormal pigmentation Hematologic/lymphatic: DENIES: Bruising Immunologic/allergic: DENIES: Eczema Neurologic: DENIES: Abnormal gait Psychiatric: DENIES: Anxiety (Sarah Maldonado) GI Exam Vitals I&O Vital Signs Date Time Temp Pulse Resp B/P (MAP) Pulse Ox O2 Delivery O2 Flow Rate FiO2 01/27/18 11:11 98 18 135/68 (90) 96 Room Air 01/27/18 07:39 98.1 108 16 162/86 94 01/27/18 06:00 90 16 166/85 98 01/27/18 05:30 92 16 171/92 97 01/27/18 05:10 89 18 178/100 96 01/27/18 04:55 98.2 86 18 181/93 96 01/27/18 04:48 98.2 101 16 166/100 95 01/27/18 04:43 20 01/27/18 04:13 98.2 100 18 173/83 96 01/27/18 03:01 100 18 170/84 96 01/27/18 02:37 105 18 167/87 96 01/27/18 02:25 98.5 112 18 171/87 95 01/27/18 02:18 102 18 174/83 98 01/27/18 00:00 111 20 184/82 (116) 97 Room Air 01/26/18 21:35 104 22 168/86 (113) 98 Room Air 01/26/18 18:59 98.7 112 24 188/88 (121) 98 I/O 01/26/18 01/26/18 01/26/18 01/27/18 01/27/18 01/27/18 07:00 15:00 23:00 07:00 15:00 23:00 Intake Total 1410 ml 450 ml Balance 1410 ml 450 ml Intake IV Total 1000 ml Packed Cells 400 ml 400 ml Blood Product IV Normal Saline Flush 10 ml 50 ml # Voids 1 1 Imaging Laboratory Tests Test 01/26/18 21:45 01/26/18 21:55 01/26/18 23:00 01/27/18 11:05 White Blood Count 13.7 TH/MM3 Red Blood Count 2.57 MIL/MM3 Mean Corpuscular Volume 71.5 FL Mean Corpuscular Hemoglobin 22.8 PG Mean Corpuscular Hemoglobin Concent 31.9 % Red Cell Distribution Width 18.5 % Platelet Count 442 TH/MM3 Mean Platelet Volume 7.1 FL Neutrophils (%) (Auto) 89.7 % Lymphocytes (%) (Auto) 6.5 % Monocytes (%) (Auto) 3.8 % Eosinophils (%) (Auto) 0.0 % Basophils (%) (Auto) 0.0 % Neutrophils # (Auto) 12.3 TH/MM3 Lymphocytes # (Auto) 0.9 TH/MM3 Monocytes # (Auto) 0.5 TH/MM3 Eosinophils # (Auto) 0.0 TH/MM3 Basophils # (Auto) 0.0 TH/MM3 CBC Comment AUTO DIFF Differential Comment AUTO DIFF CONFIRMED Platelet Estimate HIGH Platelet Morphology Comment NORMAL Ovalocytes 1+ Blood Urea Nitrogen 16 MG/DL Creatinine 1.04 MG/DL Random Glucose 106 MG/DL Calcium Level 8.8 MG/DL Sodium Level 143 MEQ/L Potassium Level 3.3 MEQ/L Chloride Level 109 MEQ/L Carbon Dioxide Level 25.6 MEQ/L Anion Gap 8 MEQ/L Estimat Glomerular Filtration Rate 53 ML/MIN Iron Level 10 MCG/DL Total Iron Binding Capacity 413 MCG/DL Percent Iron Saturation 2.4 % Vitamin B12 Level 280 PG/ML Urine Color YELLOW Urine Turbidity CLEAR Urine pH 6.0 Urine Specific [place] 1.025 Urine Protein TRACE mg/dL Urine Glucose (UA) NEG mg/dL Urine Ketones NEG mg/dL Urine Occult Blood NEG Urine Nitrite NEG Urine Bilirubin NEG Urine Urobilinogen LESS THAN 2.0 MG/DL Urine Leukocyte Esterase LARGE Urine RBC 6 /hpf Urine WBC 19 /hpf Urine Squamous Epithelial Cells 4 /hpf Urine Mucus FEW /lpf Microscopic Urinalysis Comment CULTURE INDICATED Blood Smear Pathologist Review Prothrombin Time 10.5 SEC Prothromb Time International Ratio 1.0 RATIO Activated Partial Thromboplast Time 26.4 SEC Hemoglobin 9.1 GM/DL Hematocrit 28.1 % Last Impressions Lumbar Spine CT 01/26/182133 Signed Impressions: Service Date/Time: Friday, January 26, 2018 03:02 - CONCLUSION: 1. No evidence of compression deformity or spondylolisthesis. 2. Spinal stenosis at the L3-4 level due to a combination of central disc protrusion and facet joint hypertrophy. Benito Lee MD Laboratory Test 01/26/18 21:45 01/26/18 21:55 01/26/18 23:00 01/27/18 11:05 White Blood Count 13.7 TH/MM3 Red Blood Count 2.57 MIL/MM3 Hemoglobin 5.9 GM/DL 5.9 GM/DL 9.1 GM/DL Hematocrit 18.3 % 19.1 % 28.1 % Mean Corpuscular Volume 71.5 FL Mean Corpuscular Hemoglobin 22.8 PG Mean Corpuscular Hemoglobin Concent 31.9 % Red Cell Distribution Width 18.5 % Platelet Count 442 TH/MM3 Mean Platelet Volume 7.1 FL Neutrophils (%) (Auto) 89.7 % Lymphocytes (%) (Auto) 6.5 % Monocytes (%) (Auto) 3.8 % Eosinophils (%) (Auto) 0.0 % Basophils (%) (Auto) 0.0 % Neutrophils # (Auto) 12.3 TH/MM3 Lymphocytes # (Auto) 0.9 TH/MM3 Monocytes # (Auto) 0.5 TH/MM3 Eosinophils # (Auto) 0.0 TH/MM3 Basophils # (Auto) 0.0 TH/MM3 CBC Comment AUTO DIFF Differential Comment AUTO DIFF CONFIRMED Platelet Estimate HIGH Platelet Morphology Comment NORMAL Ovalocytes 1+ Blood Urea Nitrogen 16 MG/DL Creatinine 1.04 MG/DL Random Glucose 106 MG/DL Calcium Level 8.8 MG/DL Sodium Level 143 MEQ/L Potassium Level 3.3 MEQ/L Chloride Level 109 MEQ/L Carbon Dioxide Level 25.6 MEQ/L Anion Gap 8 MEQ/L Estimat Glomerular Filtration Rate 53 ML/MIN Iron Level 10 MCG/DL Total Iron Binding Capacity 413 MCG/DL Percent Iron Saturation 2.4 % Vitamin B12 Level 280 PG/ML Urine Color YELLOW Urine Turbidity CLEAR Urine pH 6.0 Urine Specific [place] 1.025 Urine Protein TRACE mg/dL Urine Glucose (UA) NEG mg/dL Urine Ketones NEG mg/dL Urine Occult Blood NEG Urine Nitrite NEG Urine Bilirubin NEG Urine Urobilinogen LESS THAN 2.0 MG/DL Urine Leukocyte Esterase LARGE Urine RBC 6 /hpf Urine WBC 19 /hpf Urine Squamous Epithelial Cells 4 /hpf Urine Mucus FEW /lpf Microscopic Urinalysis Comment CULTURE INDICATED Blood Smear Pathologist Review Prothrombin Time 10.5 SEC Prothromb Time International Ratio 1.0 RATIO Activated Partial Thromboplast Time 26.4 SEC Date/Time Source Procedure Growth Status 01/26/18 21:55 Urine Clean Catch Urine Culture Pending Received Physical Examination HEENT: PERRL; normocephalic; atraumatic; no jaundice. CHEST: CTA CARDIAC: RRR ABDOMEN: Soft, nondistended, nontender; no hepatosplenomegaly; bowel sounds are present in all four quadrants. EXTREMITIES: No clubbing, cyanosis, or edema. SKIN: Normal; no rash; no jaundice. SPED TEACHER: No focal deficits; alert and oriented times three. (Sarah Maldonado) Assessment and Plan Plan ASSESSMENT - anemia requiring blood transfusion - could be occult bleed vs CHACE stool heme neg, no obvious bleeding. Last EGD and colonoscopy [address] Bang and unremarkable other than gastritis. takes ASA daily and occasional NSAIDs although per primary she admitted taking NSAIDs more frequently - abnormal imaging - CT showed a liver lesion, CT with liver protocol or MRI recommended PLAN - EGD and colonoscopy in am - obtain consent - clear liquids - NPO after midnight - GoLytely prep - monitor HH - transfuse as needed - notify GI of active bleeding - consider CT with liver protocol or MRI liver pt seen by myself and Dr Adame and this note is on his behalf (Sarah Maldonado) Physician Comments Agree with above. EGD and Colonoscopy in AM . Further recommendations to follow. Thank you for the consult. (Phu Adame MD) Sarah Maldonado Jan 27, 2018 12:06 Phu Adame MD Jan 27, 2018 14:13
[2018-01-27] MEDS: MORPHINE SULFATE 2 MG/ML INJ IV PUSH PRN (15:19)
[2018-01-27] MEDS: ALPRAZolam 0.25 MG TAB PO PRN (15:19)
[2018-01-27] MEDS ORDERED: PEG (High)/E-LYTE SOLN 4000 ML BTL PO ONE (16:15)
--- NOTE | 2018-01-27 17:09 | HHI.PR ---
Addendum to Inpatient Note Addendum Reason: Additional Documentation Additional Information Deferred entry, the patient seen earlier at 9:30 AM. The patient states she feels better. Denies chest pain or shortness of breath. She states that she has been having heartburn for a long time. She also complains of severe back pain radiating down the right buttocks and the posterior aspect of the right thigh associated with weakness of the right lower extremity. The patient states that she has been taking ibuprofen every 4 to every 6 hours for a long time and that she has to take Tums frequently to deal with her heartburn. She denies any melena or hematochezia. When asked about her epistaxis she said that it only lasted 5 minutes. The patient is awake alert and oriented 3, not in acute distress. Lungs are clear to auscultation bilaterally, S1-S2 present with regular rate and rhythm, no murmurs rubs or gallops. Patient presents with acute symptomatic anemia. Recent history of epistaxis, however the duration of the epistaxis does not explain the patient's showing up with hemoglobin of 5.9. I will consult GI given that the patient has been complaining of heartburn for a long time and has been using NSAIDs frequently. Patient also has severe back pain with signs and symptoms of radiculopathy. Lumbar spine CT did not show any evidence of compression deformity or spondylolisthesis. However does show spinal stenosis at the L3-L4 level due to combination of central disc protrusion and facet joint hypertrophy. I will consult neurosurgery for further recommendations. Patient also complains of anxiety for which I will start the patient on Xanax. Patient condition has improved. The patient is okay to be taken to the med surgical floor. Sung Deras MD Jan 27, 2018 17:09
[2018-01-27 17:21] LABS: BICARBONATE 26.4 MEQ/L (21.0-32.0); CALCIUM 7.8 MG/DL (8.5-10.1); CREATININE 1.01 MG/DL (0.50-1.00)
[2018-01-27] MEDS: ONDANSETRON HCL 4 MG/2 ML VIAL IVP PRN (17:31)
--- NOTE | 2018-01-27 19:10 | PD.CONS ---
History of Present Illness Service Neurosurgery Consult Requested By Medicine service Reason for Consult Lumbar radiculopathy Primary Care Physician Licha Duncan MD Diagnoses: History of Present Illness 62-year-old female states that 4 days ago she developed rather acute onset of severe right low back and gluteal pain radiating to the posterior lateral aspect of the right lower extremity. She has not had any definite weakness or numbness in the leg. No definite loss of bowel or bladder function. She states that she stated bed for most of the past 3 or 4 days and eventually presented to the emergency room on 01/26/2018 due to persistent severe pain. She denies previous similar episodes of low back or lower extremity pain. She has no complaint of neck pain or upper extremity pain weakness or numbness. She has had some nausea over the past few days without emesis. Her initial laboratory testing in the emergency room revealed hemoglobin 5.9. Urinalysis revealed large leukocyte esterase with increased WBC. She denies urinary urgency, dysuria. No diarrhea or constipation. No recent fevers chills. Review of Systems Constitutional: COMPLAINS OF: Fatigue, DENIES: Fever Eyes: DENIES: Blurred vision, Diplopia Ears, nose, mouth, throat: DENIES: Hearing loss, Vertigo Respiratory: COMPLAINS OF: Cough, Shortness of breath Cardiovascular: DENIES: Chest pain, Palpitations Gastrointestinal: COMPLAINS OF: Nausea, DENIES: Abdominal pain, Vomiting Musculoskeletal: COMPLAINS OF: Muscle aches, Back pain, DENIES: Neck pain Hematologic/lymphatic: DENIES: Bruising Neurologic: COMPLAINS OF: Abnormal gait, DENIES: Headache Psychiatric: DENIES: Confusion Past Family Social History Allergies: Coded Allergies: levofloxacin (Unverified Allergy, Severe, Rash, 07/07/17) Past Medical History COPD Hypertension Aortic stenosis GERD Fibromyalgia Depression Past Surgical History Tonsillectomy Cholecystectomy Hysterectomy Appendectomy Exploratory laparotomy for cyst removal Right hip arthroplasty Reported Medications Reported Meds & Active Scripts Active Medrol Dosepak (Methylprednisolone) 4 Mg Dspk 4 Mg PO DIRECTED Per Pharmacist direction Robaxin (Methocarbamol) 750 Mg Tab 750 Mg PO Q6HR Tramadol (Tramadol HCl) 50 Mg Tab 50 Mg PO Q6H PRN Reported Duloxetine DR (Duloxetine HCl) 60 Mg Capdr 60 Mg PO DAILY Advair Diskus Inh (Fluticasone-Salmeterol Inh) 250-50 Mcg/Blist Aer 1 Puff INH BID Rinse mouth after use. Aspirin 325 Mg Tab 325 Mg PO DAILY Biotin 1 Mg Tab 1,000 Mg PO DAILY Lisinopril 5 Mg Tab 5 Mg PO DAILY PRN Hydrocodone-Acetaminophen 10-325 mg Tab 1 Tab PO Q4H PRN Wellbutrin SR 12 HR (Bupropion HCl) 150 Mg Tab 150 Mg PO DAILY Family History Congestive heart failure in her father. No diabetes, cancer, neurologic disorders Social History Has never smoked cigarettes. Drinks alcohol occasionally Physical Exam Vital Signs Vital Signs Date Time Temp Pulse Resp B/P (MAP) Pulse Ox O2 Delivery O2 Flow Rate FiO2 01/27/18 16:13 98.0 100 16 167/89 (115) 93 01/27/18 15:28 102 16 157/92 (113) 97 Room Air 01/27/18 11:11 98 18 135/68 (90) 96 Room Air 01/27/18 07:39 98.1 108 16 162/86 94 01/27/18 06:00 90 16 166/85 98 01/27/18 05:30 92 16 171/92 97 01/27/18 05:10 89 18 178/100 96 01/27/18 04:55 98.2 86 18 181/93 96 01/27/18 04:48 98.2 101 16 166/100 95 01/27/18 04:43 20 01/27/18 04:13 98.2 100 18 173/83 96 01/27/18 03:01 100 18 170/84 96 01/27/18 02:37 105 18 167/87 96 01/27/18 02:25 98.5 112 18 171/87 95 01/27/18 02:18 102 18 174/83 98 01/27/18 00:00 111 20 184/82 (116) 97 Room Air 01/26/18 21:35 104 22 168/86 (113) 98 Room Air 01/26/18 18:59 98.7 112 24 188/88 (121) 98 Physical Exam GENERAL: This is a well-nourished, well-developed patient, exhibits significant pain and discomfort during the exam. SKIN: No abrasions, contusion, rash noted. Skin warm and dry. HEAD: Atraumatic. Normocephalic. No temporal or scalp tenderness. EYES: Sclerae are clear and nonicteric ENT: No facial edema or ecchymosis. No periorbital edema. No CSF otorrhea or rhinorrhea. No palpable facial fracture or deformity. NECK: Trachea midline. No cervical spine tenderness. CARDIOVASCULAR: Regular rate RESPIRATORY: Clear, nonlabored GASTROINTESTINAL: Abdomen soft, mild diffuse tenderness, nondistended. No hepato -splenomegaly, or palpable masses. No guarding. MUSCULOSKELETAL: Extremities without cyanosis, or edema. No joint tenderness, or edema noted. No calf tenderness. Dorsalis pedis pulses 2+ bilateral NEUROLOGICAL: Awake and alert Oriented X 3 Speech is clear Conversant and appropriate Follow simple commands well Answers questions appropriately Reasonable judgment and insight Recent and remote memory are intact No evidence of anxiety or depression Pupils are equal and reactive to accommodation. Extra-ocular movements, visual flores to confrontation, facial sensorimotor, tongue, palate, sternocleidomastoid testing, hearing to finger rub testing, and bilateral shoulder shrug are all intact. Sensation is intact to light touch in all extremities Strength normal major flexion and extension groups all extremities , except mild decreased right tibialis anterior and extensor hallucis longus with complaint of pain and possibly some breakaway weakness with testing. Inder's absent bilaterally No ankle clonus Plantar responses absent bilateral Fine motor movements intact upper extremities Laboratory Laboratory Tests Test 01/26/18 21:45 01/26/18 21:55 01/26/18 23:00 01/27/18 11:05 White Blood Count 13.7 Red Blood Count 2.57 Hemoglobin 5.9 5.9 9.1 Hematocrit 18.3 19.1 28.1 Mean Corpuscular Volume 71.5 Mean Corpuscular Hemoglobin 22.8 Mean Corpuscular Hemoglobin Concent 31.9 Red Cell Distribution Width 18.5 Platelet Count 442 Mean Platelet Volume 7.1 Neutrophils (%) (Auto) 89.7 Lymphocytes (%) (Auto) 6.5 Monocytes (%) (Auto) 3.8 Eosinophils (%) (Auto) 0.0 Basophils (%) (Auto) 0.0 Neutrophils # (Auto) 12.3 Lymphocytes # (Auto) 0.9 Monocytes # (Auto) 0.5 Eosinophils # (Auto) 0.0 Basophils # (Auto) 0.0 CBC Comment AUTO DIFF Differential Comment AUTO DIFF CONFIRMED Platelet Estimate HIGH Platelet Morphology Comment NORMAL Ovalocytes 1+ Blood Urea Nitrogen 16 Creatinine 1.04 Random Glucose 106 Calcium Level 8.8 Sodium Level 143 Potassium Level 3.3 Chloride Level 109 Carbon Dioxide Level 25.6 Anion Gap 8 Estimat Glomerular Filtration Rate 53 Iron Level 10 Total Iron Binding Capacity 413 Percent Iron Saturation 2.4 Vitamin B12 Level 280 Urine Color YELLOW Urine Turbidity CLEAR Urine pH 6.0 Urine Specific [place] 1.025 Urine Protein TRACE Urine Glucose (UA) NEG Urine Ketones NEG Urine Occult Blood NEG Urine Nitrite NEG Urine Bilirubin NEG Urine Urobilinogen LESS THAN 2.0 Urine Leukocyte Esterase LARGE Urine RBC 6 Urine WBC 19 Urine Squamous Epithelial Cells 4 Urine Mucus FEW Microscopic Urinalysis Comment CULTURE INDICATED Blood Smear Pathologist Review Prothrombin Time 10.5 Prothromb Time International Ratio 1.0 Activated Partial Thromboplast Time 26.4 Test 01/27/18 16:17 Blood Urea Nitrogen 14 Creatinine 1.01 Random Glucose 98 Calcium Level 7.8 Sodium Level 143 Potassium Level 3.2 Chloride Level 108 Carbon Dioxide Level 26.4 Anion Gap 9 Estimat Glomerular Filtration Rate 55 Date/Time Source Procedure Growth Status 01/26/18 21:55 Urine Clean Catch Urine Culture - Final 10-50,000 CFU/ML MIXED SHAILESH... Complete Result Diagram: 01/27/18 1105 01/27/18 1617 Imaging 01/26/2018 CT scan lumbar spine images reviewed by the undersigned. The study reveals L3 4 and L4 5 stenosis which appears related to disc displacement and facet hypertrophy. This may impinge on the exiting right L5 nerve root. Lumbar Spine CT 01/26/182133 Signed Impressions: Service Date/Time: Friday, January 26, 2018 03:02 - CONCLUSION: 1. No evidence of compression deformity or spondylolisthesis. 2. Spinal stenosis at the L3-4 level due to a combination of central disc protrusion and facet joint hypertrophy. Benito Lee MD Assessment and Plan Assessment and Plan Impression: 1. Symptoms and exam findings suggestive of right L5 radiculopathy. Intractable pain. 2. Lumbar degenerative disc disease with probable stenosis L3 4 and L4 [address] scan imaging. 3. COPD 4. Hypertension 5. Anemia Recommendations: Findings were discussed at length with the patient. Options of conservative treatment, possible interventional pain management been discussed. She states that her pain is extremely severe. I advised her that she may have right L5 nerve compression although the significance of this is difficult to determine based on the CT scan. She is in agreement to proceed with lumbar MRI to better assess the degree of stenosis and nerve compression. Based on the severity of her pain and mild primarily L5 distribution weakness, she may require surgical decompression depending on MRI results. Continue non-chemical DVT prophylaxis pending MRI. Physical therapy Joni Valdez MD Jan 27, 2018 19:10
[2018-01-27] MEDS: HYDROmorphone HCL PF 2 MG/ML VIAL IV PUSH PRN (20:26)
[2018-01-28] VITALS (8 sets, daily range): BP systolic 147–189; BP diastolic 72–100; PULSE 98–115; RESP 18–22; TEMP 97.6–98.5; O2SAT 91–98
[2018-01-28] MEDS: ONDANSETRON HCL 4 MG/2 ML VIAL IVP PRN (00:23)
[2018-01-28] MEDS: HYDROmorphone HCL PF 2 MG/ML VIAL IV PUSH PRN ×5 (00:23→19:19)
[2018-01-28] MEDS: ALPRAZolam 0.25 MG TAB PO PRN (01:04)
[2018-01-28] MEDS: oxyCODONE/ACETAMINOPHEN 10 MG/325 MG TAB PO PRN ×4 (03:57→22:29)
[2018-01-28 05:51] LABS: AUTOMATED NEUTROPHIL # 7.5 TH/MM3 (1.8-7.7); BASOPHIL # 0.1 TH/MM3 (0-0.2); BASOPHIL % 0.6 % (0.0-2.0); EOSINOPHIL # 0.3 TH/MM3 (0-0.4); EOSINOPHIL % 3.1 % (0.0-4.0); HEMATOCRIT 27.7 % (35.0-46.0); HEMOGLOBIN 9.3 GM/DL (11.6-15.3); LYMPH % 16.9 % (9.0-44.0); LYMPHOCYTE # 1.8 TH/MM3 (1.0-4.8); MEAN CELL VOLUME 76.7 FL (80.0-100.0); MEAN CORPUSCULAR HEMOGLOBIN 25.8 PG (27.0-34.0); MEAN CORPUSCULAR HGB CONC 33.6 % (32.0-36.0); MONO % 7.7 % (0.0-8.0); MONOCYTE # 0.8 TH/MM3 (0-0.9); NEUT % 71.7 % (16.0-70.0); PLATELET COUNT 439 TH/MM3 (150-450); RED CELL DISTRIBUTION WIDTH 20.4 % (11.6-17.2); WHITE BLOOD COUNT 10.5 TH/MM3 (4.0-11.0)
[2018-01-28 06:15] LABS: BICARBONATE 27.3 MEQ/L (21.0-32.0); CALCIUM 7.6 MG/DL (8.5-10.1); CREATININE 0.94 MG/DL (0.50-1.00)
[2018-01-28] MEDS: SODIUM CHLORIDE 0.9% FLUSH 10 ML FLUSH IV FLUSH SCH ×2 (07:32→21:00)
[2018-01-28] MEDS: DOCUSATE SODIUM 50 MG/SENNA 8.6 MG TAB PO SCH ×2 (09:00→21:00)
[2018-01-28] MEDS: BUDESONIDE-FORMOTEROL 160/4.5 MCG INHALER INH SCH ×2 (09:37→21:00)
--- NOTE | 2018-01-28 09:45 | RADRPT ---
EXAM DATE/TIME: 01/28/2018 07:50 [facility] COMPARISON: CT LUMBAR SPINE W/O CONTRAST, January 26, 2018, 3:02. INDICATIONS : Back pain radiating down right leg. MEDICAL HISTORY : Hypertension. SURGICAL HISTORY : Tonsillectomy. Cholecystectomy. Appendectomy. Rt hip repair ENCOUNTER: Subsequent ACUITY: 2 day PAIN SCORE: 6/10 LOCATION: Right leg, lower back TECHNIQUE: Multiplanar multisequence MRI of the lumbar spine was performed without contrast. FINDINGS: The most caudal appearing lumbar vertebra is numbered as L5. Sagittal T1, T2 and inversion recovery images show a very heterogeneous appearance of the vertebral b krunal and posterior element marrow throughout the lumbar spine. Vertebral body heights are maintained w ithout fracture or listhesis. Diffuse disc bulges posterior element hypertrophy results in some degre e of spinal stenosis at both L3-4 and L4-5. On the T1-weighted images, there is a right posterior dis c protrusion with a large cephalad extruded fragment measuring approximately 2.3 cm in length. The di sc is approximately 1.6 cm wide and 7 mm deep. This fills the lateral recess minimal certainly compro mises the nerve rootlets of L3 on the right. T12-L1: The thecal sac has a normal diameter. No evidence of disc bulge or protrusion. The neural foramina are patent bilaterally. L1-L2: The thecal sac has a normal diameter. No evidence of disc bulge or protrusion. The neural foramina are patent bilaterally. L2-L3: The thecal sac has a normal diameter. No evidence of disc bulge or protrusion. The neural foramina are patent bilaterally. L3-L4: Diffuse disc bulge and posterior element hypertrophy results in moderate central spinal stenosis. 7 m m broad-based right posterior disc protrusion with cephalad extrusion as above. This completely fills the lateral recess minimal certainly compromises the right L3 nerve root and may affect the right L4 nerve root as well. Both neural foramina are adequate. L4-L5: Diffuse disc bulge posterior hypertrophy results in moderate central spinal stenosis at any severe co mpromise Central nerve roots. Both neural foramina are adequate. L5-S1: Facet hypertrophy encroaches on the spinal canal with no significant central stenosis. No evidence o f disc bulge or protrusion. The neural foramina are patent bilaterally. CONCLUSION: 1. Diffuse disc bulges with posterior element hypertrophy at L3-4 and L4-5 in combination with facet hypertrophy resulting moderate to moderately severe central spinal stenosis at both levels. This may be severe enough to compromise central nerve root at both levels. 2. In addition, broad-based, 7 mm right posterior disc protrusion at L3-4 with cephalad extrusion nay suring approximately 2.3 cm in length. This fills the lateral recess and almost certainly compromises the right L3 and possibly right L4 nerve rootlets. 3. Heterogeneous appearance of the marrow signal throughout the lumbar vertebrae. Findings are nonspe cific and could represent red marrow replacement in a smoker although diffuse metastatic disease jose ot be excluded. If there is a clinical concern, bone scan could be performed for further characteriza tion. Jose Weber MD on January 28, 2018 at 8:36 Board Certified Radiologist. This report was verified electronically.
[2018-01-28] MEDS: MORPHINE SULFATE 2 MG/ML INJ IV PUSH PRN (11:54)
[2018-01-28] MEDS ORDERED: PROPOFOL 200 MG/20 ML AMP IV ONE (12:00)
[2018-01-28] MEDS ORDERED: LIDOCAINE HCL 1% PF 5 ML SYRINGE OTHER ONE (12:00)
[2018-01-28] MEDS ORDERED: DEXAMETHASONE SOD PHOS 4 MG/ML VIAL ONE (13:26)
--- NOTE | 2018-01-28 13:42 | GIPROC ---
[facility] [address] [facility]. [facility], [id number] EGD PROCEDURE REPORT EXAM DATE: 01/28/2018 PATIENT NAME: Raina Hathaway MR #: [id number] BIRTHDATE: 1955 ATTENDING: Phu Vilchis MD ORDER #: [id number] DIRECTOR OF HOUSING: Lillian Whaley and Afsaneh Rizvi STATUS: inpatient INDICATIONS: The patient is a 62 yr old female here for an EGD due to anemia PROCEDURE PERFORMED: EGD w/ biopsy MEDICATIONS: None and Per Anesthesia. TOPICAL ANESTHETIC: none CONSENT: The patient understands the risks and benefits of the procedure and understands that these risks include, but are not limited to: sedation, allergic reaction, infection, perforation and/or bleeding. Alternative means of evaluation and treatment include, among others: physical exam, x-rays, and/or surgical intervention. The patient elects to proceed with this endoscopic procedure. medical equipment was checked for proper function. Hand hygiene and appropriate measures for infection prevention was taken. After the risks, benefits and alternatives of the procedure were thoroughly explained, Informed consent was verified, confirmed and timeout was successfully executed by the treatment team. The patient was anesthetized with topical anesthesia and the EC-[id number] (Pedi C) endoscope was introduced through the mouth and advanced to the second portion of the duodenum. Retroflexion was performed and was normal The gastroscope was then slowly withdrawn and removed. ESOPHAGUS: There was LA Class C esophagitis noted. Multiple biopsies were performed using cold forceps. Sample sent for histology. STOMACH: Multiple small shallow erosions were found at the gastroesophageal junction. There was chronic moderate gastritis in the entire examined stomach. Multiple biopsies were performed using cold forceps. Sample sent for histology. DUODENUM: The duodenal mucosa appeared normal in the bulb and second portion of the duodenum. ADVERSE EVENTS: There were no complications. IMPRESSIONS: 1. There was LA Class C esophagitis noted; multiple biopsies were performed 2. Multiple small erosions were found at the gastroesophageal junction 3. There was chronic gastritis in the entire examined stomach; multiple biopsies were performed 4. Normal duodenal mucosa in the bulb and second portion of the duodenum 5. Retroflexion was performed and was normal RECOMMENDATIONS: 1. Await biopsy results. Biopsy results will not be ready for 7-10 days. If you don't hear from us in two weeks, call our office for biopsy results. 2. Continue PPI 3. Colonoscopy PATIENT CONDITION: stable DISPOSITION: Observation REPEAT EXAM: NONE Phu Vilchis MD eSigned: Phu Vilchis MD 01/28/2018 1:42 PM cc: PATIENT NAME: Raina Hathaway MR#: [id number]
[2018-01-28] MEDS ORDERED: BISACODYL EC 5 MG TABEC PO ONE (13:45)
[2018-01-28] MEDS ORDERED: MAGNESIUM CITRATE SOLN 300 ML BTL PO ONE (13:45)
[2018-01-28] MEDS ORDERED: *RESP: ALBUTEROL 2.5 MG/3 ML NEB (PRN) PERIprocedural Use ONLY NEB ONE (13:56)
[2018-01-28] MEDS ORDERED: *morphine SULFATE 4 MG/ML PERIprocedure ONLY ONE (14:01)
[2018-01-28] MEDS: LISINOPRIL 5 MG TAB PO SCH (15:02)
[2018-01-28] MEDS: DULoxetine HCl DR 60 MG CAP PO SCH (15:03)
[2018-01-28] MEDS: buPROPion HCL 150 MG SUSTAINED RELEASE TAB PO SCH (15:03)
[2018-01-28] MEDS ORDERED: DO NOT ADM ANY ANTICOAGULANT DRUGS PRN (16:45)
[2018-01-28] MEDS ORDERED: CALCIUM CARBONATE 500 MG CHEWABLE TAB CHEW ONE (17:00)
--- NOTE | 2018-01-28 17:06 | HHI.PR ---
Subjective Remarks currently eating dinner but isn't very hungry. would like some tums for heartburn. No nausea or vomiting at this time. no CP/SOB Objective Vitals Vital Signs Date Time Temp Pulse Resp B/P (MAP) Pulse Ox O2 Delivery O2 Flow Rate FiO2 01/28/18 14:30 99 21 175/81 (112) 95 Nasal Cannula 4 01/28/18 14:15 107 21 182/84 (116) 94 Nasal Cannula 4 01/28/18 14:00 119 21 186/87 (120) 98 Nasal Cannula 4 01/28/18 13:55 97.9 120 21 203/91 (128) 98 Nasal Cannula 4 01/28/18 12:00 98.5 98 22 171/100 (123) 98 01/28/18 08:00 92 Room Air 01/28/18 08:00 110 01/28/18 07:26 98.3 103 18 153/84 (107) 91 01/28/18 05:44 19 01/28/18 04:58 17 01/28/18 04:00 115 01/28/18 04:00 Room Air 01/28/18 04:00 97.6 111 18 147/72 (97) 91 01/28/18 01:00 156/88 (110) 01/28/18 00:00 98.1 106 20 165/86 (112) 95 01/28/18 00:00 Room Air 01/27/18 23:58 119 01/27/18 21:00 Room Air 01/27/18 20:00 98.2 100 19 158/97 (117) 94 01/27/18 19:59 118 I/O 01/27/18 01/27/18 01/27/18 01/28/18 01/28/18 01/28/18 06:59 14:59 22:59 06:59 14:59 22:59 Intake Total 1410 ml 450 ml 100 ml Balance 1410 ml 450 ml 100 ml Intake IV Total 1000 ml Packed Cells 400 ml 400 ml Blood Product IV Normal Saline Flush 10 ml 50 ml Other 100 ml # Voids 1 # Bowel Movements 6 2 Result Diagram: 01/28/18 0455 01/28/18 0455 Imaging Last Impressions Lumbar Spine MRI 01/28/18 0000 Signed Impressions: Service Date/Time: January 07:50 - CONCLUSION: 1. Diffuse disc bulges with posterior element hypertrophy at L3-4 and L4-5 in combination with facet hypertrophy resulting moderate to moderately severe central spinal stenosis at both levels. This may be severe enough to compromise central nerve root at both levels. 2. In addition, broad-based, 7 mm right posterior disc protrusion at L3-4 with cephalad extrusion measuring approximately 2.3 cm in length. This fills the lateral recess and almost certainly compromises the right L3 and possibly right L4 nerve rootlets. 3. Heterogeneous appearance of the marrow signal throughout the lumbar vertebrae. Findings are nonspecific and could represent red marrow replacement in a smoker although diffuse metastatic disease cannot be excluded. If there is a clinical concern, bone scan could be performed for further characterization. Jose Weber MD Lumbar Spine CT 01/26/182133 Signed Impressions: Service Date/Time: Friday, January 26, 2018 03:02 - CONCLUSION: 1. No evidence of compression deformity or spondylolisthesis. 2. Spinal stenosis at the L3-4 level due to a combination of central disc protrusion and facet joint hypertrophy. Benito Lee MD Objective Remarks GENERAL: female, lying in bed, drinking her soup CARDIOVASCULAR: Regular rate and rhythm without murmurs RESPIRATORY: Clear to auscultation. Breath sounds equal bilaterally. No wheezes GASTROINTESTINAL: Abdomen soft, non-tender, nondistended. No guarding. MUSCULOSKELETAL: Extremities without edema. No calf tenderness. Negative Homans sign bilaterally. NEUROLOGICAL: Awake and alert. A/P Assessment and Plan 1. Severe anemia H&H 5.9/18.3 s/p 2 units packed red blood cells Monitor H&H Iron studies, B12 pending Peripheral smear pending s/p EGD: showing esophagitis, gastritis and erosions in GE junctions. 2. Low back pain/sciatica Percocet for pain, Flexeril CT of the lumbar spine showed Central disc protrusion at the level of L3-4 Dr. Yeung following. MRI shows mod to severe central spinal stenosis at L3-L4 and L4-L5. awaiting final recs from neurosx. 3. Hypertension/fibromyalgia/GERD/COPD Continue home medications Discharge Planning monitor H&H. Awaiting final recs from neurosx. Possible OR. awaiting final recs from Madhavi Gutierrez MD Jan 28, 2018 17:06
[2018-01-28] MEDS ORDERED: ENALAPRILAT 1.25 MG/ML VIAL IV PUSH PRN (17:30)
[2018-01-28] MEDS: PANTOPRAZOLE SOD 40 MG DELAYED RELEASE TAB PO SCH (17:41)
[2018-01-28] MEDS ORDERED: amLODIPine BESYLATE 5 MG TAB PO ONE (17:45)
[2018-01-28] MEDS ORDERED: POTASSIUM CHLORIDE 20 MEQ CONTROLLED RELEASE TAB PO ONE (17:45)
--- NOTE | 2018-01-28 17:51 | HHI.NSPN ---
(Manohar Richard) History Chief Complaint: Right leg pain and weakness (Manohar Richard) Interval History 01/27: 62-year-old female states that 4 days ago she developed rather acute onset of severe right low back and gluteal pain radiating to the posterior lateral aspect of the right lower extremity. She has not had any definite weakness or numbness in the leg. No definite loss of bowel or bladder function. She states that she stated bed for most of the past 3 or 4 days and eventually presented to the emergency room on 01/26/2018 due to persistent severe pain. She denies previous similar episodes of low back or lower extremity pain. She has no complaint of neck pain or upper extremity pain weakness or numbness. She has had some nausea over the past few days without emesis. Her initial laboratory testing in the emergency room revealed hemoglobin 5.9. Urinalysis revealed large leukocyte esterase with increased WBC. She denies urinary urgency, dysuria. No diarrhea or constipation. No recent fevers chills. 01/28: The patient is awake and alert in bed when seen this afternoon. She still has the low back pain into the right lower extremity and says that she has to lift it up to move it because it is weak. She denies any numbness to either extremity and has no pain or weakness to the left lower extremity. (Manohar Richard) Exam Results 01/26/18 01/26/18 01/27/18 01/27/18 01/28/18 01/28/18 06:00 18:00 06:00 18:00 06:00 18:00 Intake Total 1410 ml 450 ml 100 ml Balance 1410 ml 450 ml 100 ml Intake IV Total 1000 ml Packed Cells 400 ml 400 ml Blood Product IV Normal Saline Flush 10 ml 50 ml Other 100 ml # Voids 2 # Bowel Movements 6 2 Vital Signs Date Time Temp Pulse Resp B/P (MAP) Pulse Ox O2 Delivery O2 Flow Rate FiO2 01/28/18 14:30 99 21 175/81 (112) 95 Nasal Cannula 4 01/28/18 14:15 107 21 182/84 (116) 94 Nasal Cannula 4 01/28/18 14:00 119 21 186/87 (120) 98 Nasal Cannula 4 01/28/18 13:55 97.9 120 21 203/91 (128) 98 Nasal Cannula 4 01/28/18 12:00 98.5 98 22 171/100 (123) 98 01/28/18 08:00 92 Room Air 01/28/18 08:00 110 01/28/18 07:26 98.3 103 18 153/84 (107) 91 01/28/18 05:44 19 01/28/18 04:58 17 01/28/18 04:00 115 01/28/18 04:00 Room Air 01/28/18 04:00 97.6 111 18 147/72 (97) 91 01/28/18 01:00 156/88 (110) 01/28/18 00:00 98.1 106 20 165/86 (112) 95 01/28/18 00:00 Room Air 01/27/18 23:58 119 01/27/18 21:00 Room Air 01/27/18 20:00 98.2 100 19 158/97 (117) 94 01/27/18 19:59 118 01/27/18 16:13 98.0 100 16 167/89 (115) 93 01/27/18 15:28 102 16 157/92 (113) 97 Room Air 01/27/18 11:11 98 18 135/68 (90) 96 Room Air 01/27/18 07:39 98.1 108 16 162/86 94 01/27/18 06:00 90 16 166/85 98 01/27/18 05:30 92 16 171/92 97 01/27/18 05:10 89 18 178/100 96 01/27/18 04:55 98.2 86 18 181/93 96 01/27/18 04:48 98.2 101 16 166/100 95 01/27/18 04:13 98.2 100 18 173/83 96 01/27/18 03:01 100 18 170/84 96 01/27/18 02:37 105 18 167/87 96 01/27/18 02:25 98.5 112 18 171/87 95 01/27/18 02:18 102 18 174/83 98 01/27/18 00:00 111 20 184/82 (116) 97 Room Air 01/26/18 21:35 104 22 168/86 (113) 98 Room Air 01/26/18 18:59 98.7 112 24 188/88 (121) 98 (Manohar Richard) Physical Examination GENERAL: Awake & alert sitting in bed on her cellphone texting. Her affect is normal and she readily interacts. She is not in any apparent distress. MUSCULOSKELETAL: Move all extremities spontaneously. No evident clubbing or deformity. Left wrist in velcro wrist splint. She is TTP to the [id number] lumbar spine midline and to the sciatic notch. The lower extremities are NTTP. NEUROLOGICAL: AAOx3. Speech clear & appropriate but w/mild to moderate dysarthria. Follows simple commands w/o difficulty. Sensation is intact to light touch to the lower extremities. Motor strength is mildly weak to the right extensor hallucis longus but is o/w normal to all major flexion & extension muscle groups of the lower extremities. She does have pain to the lower back & buttock w/testing of the RLE. (Manohar Richard) Lab, Micro, Other Results Recent Impressions Lumbar Spine MRI 01/28/18 0000 Signed Impressions: Service Date/Time: January 07:50 - CONCLUSION: 1. Diffuse disc bulges with posterior element hypertrophy at L3-4 and L4-5 in combination with facet hypertrophy resulting moderate to moderately severe central spinal stenosis at both levels. This may be severe enough to compromise central nerve root at both levels. 2. In addition, broad-based, 7 mm right posterior disc protrusion at L3-4 with cephalad extrusion measuring approximately 2.3 cm in length. This fills the lateral recess and almost certainly compromises the right L3 and possibly right L4 nerve rootlets. 3. Heterogeneous appearance of the marrow signal throughout the lumbar vertebrae. Findings are nonspecific and could represent red marrow replacement in a smoker although diffuse metastatic disease cannot be excluded. If there is a clinical concern, bone scan could be performed for further characterization. Jose Weber MD Lumbar Spine CT 01/26/18 7967 Signed Impressions: Service Date/Time: Friday, January 26, 2018 03:02 - CONCLUSION: 1. No evidence of compression deformity or spondylolisthesis. 2. Spinal stenosis at the L3-4 level due to a combination of central disc protrusion and facet joint hypertrophy. Benito Lee MD Laboratory Tests Test 01/26/18 21:45 01/26/18 21:55 01/26/18 23:00 01/27/18 11:05 White Blood Count 13.7 TH/MM3 Red Blood Count 2.57 MIL/MM3 Hemoglobin 5.9 GM/DL 5.9 GM/DL 9.1 GM/DL Hematocrit 18.3 % 19.1 % 28.1 % Mean Corpuscular Volume 71.5 FL Mean Corpuscular Hemoglobin 22.8 PG Mean Corpuscular Hemoglobin Concent 31.9 % Red Cell Distribution Width 18.5 % Platelet Count 442 TH/MM3 Mean Platelet Volume 7.1 FL Neutrophils (%) (Auto) 89.7 % Lymphocytes (%) (Auto) 6.5 % Monocytes (%) (Auto) 3.8 % Eosinophils (%) (Auto) 0.0 % Basophils (%) (Auto) 0.0 % Neutrophils # (Auto) 12.3 TH/MM3 Lymphocytes # (Auto) 0.9 TH/MM3 Monocytes # (Auto) 0.5 TH/MM3 Eosinophils # (Auto) 0.0 TH/MM3 Basophils # (Auto) 0.0 TH/MM3 CBC Comment AUTO DIFF Differential Comment AUTO DIFF CONFIRMED Platelet Estimate HIGH Platelet Morphology Comment NORMAL Ovalocytes 1+ Blood Urea Nitrogen 16 MG/DL Creatinine 1.04 MG/DL Random Glucose 106 MG/DL Calcium Level 8.8 MG/DL Sodium Level 143 MEQ/L Potassium Level 3.3 MEQ/L Chloride Level 109 MEQ/L Carbon Dioxide Level 25.6 MEQ/L Anion Gap 8 MEQ/L Estimat Glomerular Filtration Rate 53 ML/MIN Iron Level 10 MCG/DL Total Iron Binding Capacity 413 MCG/DL Percent Iron Saturation 2.4 % Vitamin B12 Level 280 PG/ML Urine Color YELLOW Urine Turbidity CLEAR Urine pH 6.0 Urine Specific Kincaid 1.025 Urine Protein TRACE mg/dL Urine Glucose (UA) NEG mg/dL Urine Ketones NEG mg/dL Urine Occult Blood NEG Urine Nitrite NEG Urine Bilirubin NEG Urine Urobilinogen LESS THAN 2.0 MG/DL Urine Leukocyte Esterase LARGE Urine RBC 6 /hpf Urine WBC 19 /hpf Urine Squamous Epithelial Cells 4 /hpf Urine Mucus FEW /lpf Microscopic Urinalysis Comment CULTURE INDICATED Blood Smear Pathologist Review Prothrombin Time 10.5 SEC Prothromb Time International Ratio 1.0 RATIO Activated Partial Thromboplast Time 26.4 SEC Test 01/27/18 16:17 01/28/18 04:55 Blood Urea Nitrogen 14 MG/DL 11 MG/DL Creatinine 1.01 MG/DL 0.94 MG/DL Random Glucose 98 MG/DL 79 MG/DL Calcium Level 7.8 MG/DL 7.6 MG/DL Sodium Level 143 MEQ/L 144 MEQ/L Potassium Level 3.2 MEQ/L 3.1 MEQ/L Chloride Level 108 MEQ/L 108 MEQ/L Carbon Dioxide Level 26.4 MEQ/L 27.3 MEQ/L Anion Gap 9 MEQ/L 9 MEQ/L Estimat Glomerular Filtration Rate 55 ML/MIN 60 ML/MIN White Blood Count 10.5 TH/MM3 Red Blood Count 3.60 MIL/MM3 Hemoglobin 9.3 GM/DL Hematocrit 27.7 % Mean Corpuscular Volume 76.7 FL Mean Corpuscular Hemoglobin 25.8 PG Mean Corpuscular Hemoglobin Concent 33.6 % Red Cell Distribution Width 20.4 % Platelet Count 439 TH/MM3 Mean Platelet Volume 7.0 FL Neutrophils (%) (Auto) 71.7 % Lymphocytes (%) (Auto) 16.9 % Monocytes (%) (Auto) 7.7 % Eosinophils (%) (Auto) 3.1 % Basophils (%) (Auto) 0.6 % Neutrophils # (Auto) 7.5 TH/MM3 Lymphocytes # (Auto) 1.8 TH/MM3 Monocytes # (Auto) 0.8 TH/MM3 Eosinophils # (Auto) 0.3 TH/MM3 Basophils # (Auto) 0.1 TH/MM3 CBC Comment DIFF FINAL Differential Comment (Manohar Richard) Medical Decision Making Impression and Plan Impression: 1. Symptoms and exam findings suggestive of right L5 radiculopathy. Intractable pain. 2. Lumbar degenerative disc disease with probable stenosis L3 4 and L4 [address] scan imaging. 3. COPD 4. Hypertension 5. Anemia Patient is doing well and remains neurologically intact. Pain persists to the lower back and into the RLE. Reviewed labs for today. Interval improvement in anaemia. Downward drift in hypokalemia. Improved renal function. MRI lumbar spine demonstrates diffuse disc bulges w/posterior element hypertrophy at L3-4 & L4-5 levels & facet hypertrophy resulting in moderate to moderately severe central spinal stenosis and may be severe enough to compromise the central nerve root at both levels. There is also broad-based right posterior disc protrusion at L3-4 with cephalad extrusion which fills the lateral recess w/probable compromise of the right L3 and possibly right L4 nerve rootlets. Heterogeneous appearance of the marrow signal throughout the lumbar vertebrae are nonspecific and could represent red marrow replacement in a smoker although diffuse metastatic disease cannot be excluded. Plan: Primary management per Hospitalist. Mechanical DVT prophylaxis. Hold pharmacologic DVT prophylaxis. Mobilise patient w/assistance. Physical Therapy eval & tx. NPO now. Plan to take patient for a right L3-4 laminectomy and discectomy & a right L4- 5 decompressive semi-laminectomy, possibly later this evening. (Manohar Richard) Attending Statement The exam, history, and the medical decision-making described in the above note were completed with the assistance of the mid-level provider. I reviewed and agree with the findings presented. I attest that I had a [id number] encounter with the patient on the same day, and personally performed and documented my assessment and findings in the medical record. The patient remains with significant right gluteal and lower extremity pain. Motor function is somewhat difficult to accurately assess due to significant pain in the right leg with testing. No definite sensory changes to light touch Patient was tentatively scheduled for surgery today, however this is postponed to 01/28/2018 AM due to OR scheduling changes related to trauma patients. Discussed with patient this evening and she understands. Continue present pain medications (Joni Valdez MD) Manohar Richard Jan 28, 2018 17:51 Joni Valdez MD Jan 28, 2018 20:59
[2018-01-28] MEDS ORDERED: CHLORHEXIDINE GLUCONATE 2 % 1 PACK (2 CLOTHS) TOPICAL PRN (20:45)
[2018-01-28] MEDS ORDERED: POVIDONE IODINE 5% (ANTISEPSIS KIT) 4 APPLICATIONS EACH NARE PRN (20:45)
[2018-01-28] MEDS ORDERED: LACTATED RINGER'S 1000 ML IV PRN (20:45)
[2018-01-28] MEDS ORDERED: SODIUM CHLORID 0.9% 500 ML IV PRN (20:45)
[2018-01-28] MEDS ORDERED: HYDROmorphone HCL PF 2 MG/ML VIAL IV ONE (22:45)
[2018-01-29] VITALS: BP 162/68; PULSE 120; RESP 20; TEMP 98.7; O2SAT 97
[2018-01-29] MEDS: oxyCODONE/ACETAMINOPHEN 10 MG/325 MG TAB PO PRN ×3 (02:53→19:38)
[2018-01-29 04:00] VITALS: BP 152/76; PULSE 97; PULSE 99; RESP 20; TEMP 98; O2SAT 94
[2018-01-29] MEDS: HYDROmorphone HCL PF 2 MG/ML VIAL IV PUSH PRN ×2 (05:05→21:34)
[2018-01-29] MEDS ORDERED: BUPIVACAINE LIPOSOME PF 1.3% 20 ML VIAL ONE (07:05)
[2018-01-29] MEDS ORDERED: ACETAMINOPHEN 1000 MG/100 ML 100 ML IV ONE (07:18)
[2018-01-29] MEDS ORDERED: LIDOCAINE 1%/EPINEPHrine 1:100,000 SOLN 30 ML VIAL ONE (07:26)
[2018-01-29] MEDS ORDERED: CLINDAMYCIN PHOS 600 MG/4 ML VIAL ONE (07:27)
[2018-01-29] MEDS ORDERED: THROMBIN (TOPICAL) 5,000 UNIT VIAL ONE (07:27)
[2018-01-29] MEDS ORDERED: GELFOAM SIZE 100 ONE (07:27)
[2018-01-29] MEDS ORDERED: GENTAMICIN SULFATE 80 MG/2 ML VIAL ONE (07:34)
[2018-01-29] MEDS ORDERED: KETAMINE HCL 500 MG/5 ML VIAL ONE (07:44)
[2018-01-29] MEDS: SODIUM CHLORIDE 0.9% FLUSH 10 ML FLUSH IV FLUSH SCH ×2 (09:00→19:39)
[2018-01-29] MEDS: BUDESONIDE-FORMOTEROL 160/4.5 MCG INHALER INH SCH ×2 (09:00→21:34)
[2018-01-29] MEDS ORDERED: BUPIVACAINE LIPOSOME PF 1.3% 20 ML VIAL INFIL ONE (09:39)
[2018-01-29] MEDS ORDERED: *LABETALOL HCL 100 MG/20 ML VIAL PERIprocedural Use ONLY ONE (10:20)
[2018-01-29] MEDS ORDERED: *morphine SULFATE 10 MG/ML PERIprocedure ONLY ONE ×2 (10:41→11:10)
[2018-01-29] MEDS ORDERED: DO NOT ADM ANY ANTICOAGULANT DRUGS PRN (10:45)
[2018-01-29] MEDS ORDERED: MIDAZOLAM HCL 2 MG/2 ML VIAL ONE (10:45)
[2018-01-29] MEDS ORDERED: PROPOFOL 200 MG/20 ML AMP IV ONE (12:00)
[2018-01-29] MEDS ORDERED: GLYCOPYRROLATE 1 MG/5 ML SYRINGE IV PUSH ONE (12:00)
[2018-01-29] MEDS ORDERED: SODIUM CHLORIDE 0.9% 20 ML VIAL IV ONE (12:00)
[2018-01-29] MEDS ORDERED: LIDOCAINE HCL 1% PF 5 ML SYRINGE OTHER ONE (12:00)
[2018-01-29] MEDS ORDERED: LACTATED RINGER'S 1000 ML INJ 1,000 ML IV ONE (12:00)
[2018-01-29] MEDS ORDERED: ROCURONIUM INJ 50 MG/5 ML SYRINGE IV PUSH ONE (12:00)
[2018-01-29] MEDS ORDERED: ONDANSETRON HCL 4 MG/2 ML VIAL IV ONE (12:00)
[2018-01-29] MEDS ORDERED: NEOSTIGMINE 5 MG/5 ML SYRINGE IV PUSH ONE (12:00)
[2018-01-29] MEDS ORDERED: PHENYLEPH/NS 1000 MCG/10 ML SYR IV ONE (12:00)
[2018-01-29] MEDS ORDERED: DEXAMETHASONE SOD PHOS 4 MG/ML VIAL IV ONE (12:00)
[2018-01-29 12:06] VITALS: BP 162/92; PULSE 92; RESP 17; TEMP 98.4; O2SAT 92
[2018-01-29] MEDS: DULoxetine HCl DR 60 MG CAP PO SCH (12:49)
[2018-01-29] MEDS: DOCUSATE SODIUM 50 MG/SENNA 8.6 MG TAB PO SCH ×2 (12:49→19:38)
[2018-01-29] MEDS: CYCLOBENZAPRINE HCL 10 MG TAB PO PRN (12:50)
[2018-01-29] MEDS: PANTOPRAZOLE SOD 40 MG DELAYED RELEASE TAB PO SCH (12:50)
[2018-01-29] MEDS: amLODIPine BESYLATE 5 MG TAB PO SCH (12:50)
[2018-01-29] MEDS: buPROPion HCL 150 MG SUSTAINED RELEASE TAB PO SCH (12:50)
[2018-01-29] MEDS: LISINOPRIL 5 MG TAB PO SCH (12:50)
--- NOTE | 2018-01-29 12:52 | HHI.PR ---
Subjective Remarks Nursing denies any deterioration since last night. Patient did go to the OR today, now she is back after some neurosurgical procedure for intractable low back pain . Patient appears drowsy as she was recently sedated. Objective Vital Signs Date Time Temp Pulse Resp B/P (MAP) Pulse Ox O2 Delivery O2 Flow Rate FiO2 01/29/18 12:06 98.4 92 17 162/92 (115) 92 01/29/18 11:20 97.9 97 18 175/82 (113) 94 Nasal Cannula 2 01/29/18 11:00 97 18 175/82 (113) 94 Nasal Cannula 2 01/29/18 10:45 96 20 179/90 (119) 90 Nasal Cannula 2 01/29/18 10:30 82 20 173/90 (117) 91 Nasal Cannula 2 01/29/18 10:16 97.9 113 20 180/93 (122) 91 Nasal Cannula 2 Manual Cuff/Auscultation 01/29/18 04:07 Room Air 01/29/18 04:00 99 01/29/18 04:00 98.0 97 20 152/76 (101) 94 01/29/18 00:00 Room Air 01/29/18 00:00 98.7 120 20 162/68 (99) 97 01/28/18 20:00 Room Air 01/28/18 20:00 107 01/28/18 16:00 98.1 100 21 189/100 (129) 96 01/28/18 14:30 99 21 175/81 (112) 95 Nasal Cannula 4 01/28/18 14:15 107 21 182/84 (116) 94 Nasal Cannula 4 01/28/18 14:00 119 21 186/87 (120) 98 Nasal Cannula 4 01/28/18 13:55 97.9 120 21 203/91 (128) 98 Nasal Cannula 4 I/O 01/28/18 01/28/18 01/28/18 01/29/18 01/29/18 01/29/18 07:00 15:00 23:00 07:00 15:00 23:00 Intake Total 100 ml 480 ml 0 ml 1500 ml Output Total 400 ml 450 ml 50 ml Balance 100 ml 80 ml -450 ml 1450 ml Intake Oral 480 ml 0 ml Other 100 ml 1500 ml Output Urine Total 400 ml 450 ml Estimated Blood Loss 50 ml # Voids 2 # Bowel Movements 6 2 1 0 Result Diagram: 3/8/18 0455 01/28/18 0455 Objective Remarks Lying in bed, appears drowsy, abdomen soft, nondistended, nontender Lungs are clear bilaterally A/P Assessment and Plan 1. Severe anemia improved after 2 units, blood counts holding steady. Likely secondary to blood loss and iron deficiency as iron is low Peripheral smear pending s/p EGD: showing esophagitis, gastritis and erosions in GE junctions. 2. Low back pain/sciatica s/p surgical intervention POD [address] Dr. Yeung following. MRI shows mod to severe central spinal stenosis at L3-L4 and L4-L5. awaiting final recs from neurosx. IV pain meds; follow resp status 3. Hypertension/fibromyalgia/GERD/COPD Continue home medications Discharge Planning pending rehab disposition given post surgery and blood counts Danie Miller MD Jan 29, 2018 12:52
--- NOTE | 2018-01-29 15:13 | RADRPT ---
EXAM DATE/TIME: 01/29/2018 08:38 [facility] COMPARISON: No previous studies available for comparison. INDICATIONS : Fracture- Right L3-L4 laminectomy. MEDICAL HISTORY : None. SURGICAL HISTORY : None. ENCOUNTER: Initial ACUITY: 1 day PAIN SCORE: Non-responsive. LOCATION: Right Lspine. FINDINGS: A single, targeted intraoperative lateral view of the lumbar spine was performed. Metallic marker pro jects posterior to the L3-4 disc interspace. CONCLUSION: Metallic marker projecting posterior to the L3-4 disc interspace. Jose Weber MD on January 29, 2018 at 15:10 Board Certified Radiologist. This report was verified electronically.
[2018-01-29 16:06] VITALS: BP 140/91; PULSE 83; RESP 18; TEMP 98.1; O2SAT 94
[2018-01-29 16:55] LABS: AUTOMATED NEUTROPHIL # 8.2 TH/MM3 (1.8-7.7); BASOPHIL # 0.1 TH/MM3 (0-0.2); BASOPHIL % 0.6 % (0.0-2.0); EOSINOPHIL % 0.1 % (0.0-4.0); LYMPHOCYTE # 0.8 TH/MM3 (1.0-4.8); MEAN CELL VOLUME 77.3 FL (80.0-100.0); MEAN CORPUSCULAR HEMOGLOBIN 27.4 PG (27.0-34.0); MEAN CORPUSCULAR HGB CONC 35.5 % (32.0-36.0); MEAN PLATELET VOLUME 7.4 FL (7.0-11.0); MONO % 5.8 % (0.0-8.0); MONOCYTE # 0.6 TH/MM3 (0-0.9); NEUT % 85.5 % (16.0-70.0); PLATELET COUNT 402 TH/MM3 (150-450); RED BLOOD COUNT 3.49 MIL/MM3 (4.00-5.30); RED CELL DISTRIBUTION WIDTH 21.1 % (11.6-17.2); WHITE BLOOD COUNT 9.5 TH/MM3 (4.0-11.0)
[2018-01-29 16:56] LABS: BICARBONATE 26.6 MEQ/L (21.0-32.0); CALCIUM 7.6 MG/DL (8.5-10.1); CREATININE 0.87 MG/DL (0.50-1.00)
[2018-01-29 16:57] LABS: HEMOGLOBIN 9.6 GM/DL (11.6-15.3)
[2018-01-29] MEDS: ONDANSETRON HCL 4 MG/2 ML VIAL IVP PRN (17:18)
[2018-01-29] MEDS: MORPHINE SULFATE 2 MG/ML INJ IV PUSH PRN (17:18)
--- NOTE | 2018-01-29 18:59 | PD.OP ---
Operative Report Date of Surgery: Jan 29, 2018 Preoperative Diagnosis: (1) Herniated nucleus pulposus, lumbar (2) Lumbar radiculopathy 1. Right L3 4 herniated nucleus pulposus 2. Right L3 radiculopathy Postoperative Diagnosis: (1) Herniated nucleus pulposus, lumbar (2) Lumbar radiculopathy 1. Right L3 4 herniated nucleus pulposus 2. Right L3 radiculopathy Procedure: Right L3 semi-laminectomy, discectomy, resection sequestered herniated nucleus pulposis Anesthesia: Gen. Surgeon: Joni Valdez Trade Show Specialist(s): Adri Mcneil Operation and Findings: Findings: Large sequestered herniated nucleus pulposis adjacent to and just below the right L3 pedicle. Focal annular tear at the junction of the right L3- 4 annulus and posterior inferior right L3 vertebral body with protruding fragments of disc material. Procedure in detail: The patient was brought into the operating room and general endotracheal anesthesia induced without difficulty. Knee-high sequential compression devices were placed. Lines were established by Anesthesia The patient was placed in prone position on the concentric Tim table with the side bolsters and all extremities appropriately padded Appropriate timeout procedure was performed with all personal present and in agreement The lumbar region was shaved with clippers and sterilely prepped and draped. 1% Xylocaine with epinephrine was used for local infiltration over the incision site which was made just to the right of midline at the L3 4 level. The incision was carried sharply down to the lumbodorsal fascia which was incised just adjacent to the spinous processes. Topete elevator was used for subperiosteal elevation of paraspinous musculature and fascia away from the lamina and spinous process The deep self-retaining retractor was placed. The appropriate level was verified with intraoperative C-arm. The microscope was moved into place and used for the remainder of the procedure including the closure. The TPS drill with the 5 mm bone bur followed by the 3 mm Kerrison rongeur was used to remove the inferior aspect of the most cephalad lamina and a small amount of the superior aspect of the most caudal lamina along with a small amount of the medial facet sufficient to gain access to the lateral recess without significant nerve root or thecal sac retraction. The ligamentum flavum was elevated away from the thecal sac and resected with the Kerrison rongeur which was also used to further remove ligamentum along the lateral recess. The exiting nerve root was traced down to the medial aspect of the inferior pedicle and traced back to the exit from the thecal sac. The thecal sac and exiting nerve root were then retracted gently medially revealing the underlying disc and annulus. The patient was noted to have a prominent sequestered herniated nucleus pulposus which was significantly impinging on the overlying exiting nerve root and thecal sac. The disc fragments were herniated cephalad to the right L3 4 level, lying mostly at the level of the pedicle beneath the exiting right L3 nerve root. These fragments were freed up with the long blunt nerve hook and carefully removed with the micro-biopsy forceps. Once these fragments were removed, the right L3 4 annulus was inspected and there was noted to be a tear at the junction with the inferior posterior L3 vertebral body with some protruding disc fragments. This defect was probed with the microdissectors and once the disc space was entered, further fragments of desiccated herniated nucleus pulposis were thoroughly removed from the interspace to decrease the risk of recurrent disc herniation. The neural structures appeared well decompressed at the end of the procedure. Bleeding was carefully controlled with bone wax for the bone bleeding and bipolar forceps. There is no significant bleeding time of closure. No cerebrospinal fluid leakage was encountered. The closure was performed with 0 Vicryl interrupted for the deep and superficial fascia, with 3-0 Vicryl interrupted for the subcutaneous closure, and 4-0 Vicryl running for the subcuticular closure. The dressing of sterile Mastisol, Steri-Strips, and Primapore dressing was applied. The patient was taken to recovery room in stable condition. All counts were correct at the end of the case. No specimen was sent to pathology. Estimated blood loss was 50 cc . Joni Valdez MD Jan 29, 2018 18:59
[2018-01-29 20:00] VITALS: BP 145/81; PULSE 91; PULSE 94; RESP 15; TEMP 98.5; O2SAT 94
[2018-01-29] MEDS: ALPRAZolam 0.25 MG TAB PO PRN (21:42)
[2018-01-30] VITALS (9 sets, daily range): BP systolic 135–170; BP diastolic 80–98; PULSE 20–119; RESP 17–20; TEMP 98–99; O2SAT 92–94
[2018-01-30] MEDS: oxyCODONE/ACETAMINOPHEN 10 MG/325 MG TAB PO PRN ×4 (01:32→22:01)
[2018-01-30] MEDS: HYDROmorphone HCL PF 2 MG/ML VIAL IV PUSH PRN ×2 (05:08→11:58)
[2018-01-30 07:27] LABS: AUTOMATED NEUTROPHIL # 6.2 TH/MM3 (1.8-7.7); BASOPHIL # 0.1 TH/MM3 (0-0.2); BASOPHIL % 0.5 % (0.0-2.0); EOSINOPHIL # 0.1 TH/MM3 (0-0.4); EOSINOPHIL % 1.5 % (0.0-4.0); HEMATOCRIT 28.2 % (35.0-46.0); HEMOGLOBIN 9.2 GM/DL (11.6-15.3); LYMPH % 21.5 % (9.0-44.0); MEAN CELL VOLUME 77.7 FL (80.0-100.0); MEAN CORPUSCULAR HEMOGLOBIN 25.5 PG (27.0-34.0); MEAN CORPUSCULAR HGB CONC 32.7 % (32.0-36.0); MEAN PLATELET VOLUME 6.8 FL (7.0-11.0); MONO % 10.2 % (0.0-8.0); NEUT % 66.3 % (16.0-70.0); PLATELET COUNT 486 TH/MM3 (150-450); RED BLOOD COUNT 3.63 MIL/MM3 (4.00-5.30); RED CELL DISTRIBUTION WIDTH 21.6 % (11.6-17.2); WHITE BLOOD COUNT 9.3 TH/MM3 (4.0-11.0)
[2018-01-30 08:39] LABS: BICARBONATE 28.9 MEQ/L (21.0-32.0); CALCIUM 8.1 MG/DL (8.5-10.1); CREATININE 0.83 MG/DL (0.50-1.00)
[2018-01-30] MEDS: DOCUSATE SODIUM 50 MG/SENNA 8.6 MG TAB PO SCH ×2 (09:44→20:30)
[2018-01-30] MEDS: DULoxetine HCl DR 60 MG CAP PO SCH (09:44)
[2018-01-30] MEDS: amLODIPine BESYLATE 5 MG TAB PO SCH (09:44)
[2018-01-30] MEDS: buPROPion HCL 150 MG SUSTAINED RELEASE TAB PO SCH (09:44)
[2018-01-30] MEDS: PANTOPRAZOLE SOD 40 MG DELAYED RELEASE TAB PO SCH (09:44)
[2018-01-30] MEDS: LISINOPRIL 5 MG TAB PO SCH (09:44)
[2018-01-30] MEDS: SODIUM CHLORIDE 0.9% FLUSH 10 ML FLUSH IV FLUSH SCH ×2 (09:44→22:02)
[2018-01-30] MEDS: BUDESONIDE-FORMOTEROL 160/4.5 MCG INHALER INH SCH ×2 (09:45→22:02)
[2018-01-30] MEDS ORDERED: PANT40TA3 PO (13:37)
[2018-01-30] MEDS: CALCIUM CARBONATE 500 MG CHEWABLE TAB CHEW SCH ×2 (15:06→20:30)
--- NOTE | 2018-01-30 16:15 | HHI.PR ---
Subjective Remarks Nursing denies any deterioration since last night. Patient herself reports tolerating p.o. intake well. No black tarry or red stools. Objective Vital Signs Date Time Temp Pulse Resp B/P (MAP) Pulse Ox O2 Delivery O2 Flow Rate FiO2 01/30/18 08:00 98.4 89 18 170/98 (122) 93 01/30/18 07:00 Room Air 01/30/18 04:00 98.9 95 17 170/82 (111) 94 01/30/18 04:00 Room Air 01/30/18 04:00 92 01/30/18 00:00 98 01/30/18 00:00 Room Air 01/30/18 00:00 98.1 106 18 135/80 (98) 92 01/29/18 20:00 94 01/29/18 20:00 98.5 91 15 145/81 (102) 94 01/29/18 19:39 Room Air 01/29/18 17:23 18 I/O 01/29/18 01/29/18 01/29/18 01/30/18 01/30/18 01/30/18 07:00 15:00 23:00 07:00 15:00 23:00 Intake Total 0 ml 1500 ml 360 ml 1200 ml Output Total 450 ml 50 ml 300 ml Balance -450 ml 1450 ml 360 ml 900 ml Intake Oral 0 ml 360 ml 1200 ml Other 1500 ml Output Urine Total 450 ml 300 ml Estimated Blood Loss 50 ml # Voids 2 1 # Bowel Movements 0 0 Result Diagram: 01/30/18 0636 01/30/18 0636 Objective Remarks abdomen soft, nondistended, nontender Lungs are clear bilaterally, sitting up in bed, eating, no acute distress A/P Assessment and Plan 1. Severe anemia Holding steady Likely secondary to blood loss and iron deficiency as iron is low s/p EGD: showing esophagitis, gastritis and erosions in GE junctions. Counseled to refrain from NSAIDs 2. Lumbar spinal stenosis s/p laminectomy and discectomy POD 1 We will attempt to transition from IV to p.o. pain medicines today 3. Hypertension/fibromyalgia/GERD/COPD Continue home medications Discharge Planning pending rehab acceptance Danie Miller MD Jan 30, 2018 16:15
[2018-01-30] MEDS: ALPRAZolam 0.25 MG TAB PO PRN (20:30)
[2018-01-30] MEDS: CYCLOBENZAPRINE HCL 10 MG TAB PO PRN (20:30)
--- NOTE | 2018-01-30 23:56 | HHI.NSPN ---
History Chief Complaint: Right leg pain and weakness Interval History pOd 1 Exam Results Vital Signs Date Time Temp Pulse Resp B/P (MAP) Pulse Ox O2 Delivery O2 Flow Rate FiO2 01/30/18 20:00 98.9 20 20 159/81 (107) 94 01/30/18 20:00 Room Air 01/29/18 11:30 2.00 Intake and Output 01/30/18 01/30/18 01/31/18 08:00 16:00 00:00 Intake Total 1200 ml 480 ml Output Total 300 ml Balance 900 ml 480 ml Physical Examination GENERAL: Awake & alert sitting in bed on her cellphone texting. Her affect is normal and she readily interacts. She is not in any apparent distress. MUSCULOSKELETAL: Move all extremities spontaneously. No evident clubbing or deformity. Left wrist in velcro wrist splint. She is TTP to the [id number] lumbar spine midline and to the sciatic notch. The lower extremities are NTTP. NEUROLOGICAL: AAOx3. Speech clear & appropriate but w/mild to moderate dysarthria. Follows simple commands w/o difficulty. Sensation is intact to light touch to the lower extremities. Motor strength is mildly weak to the right extensor hallucis longus but is o/w normal to all major flexion & extension muscle groups of the lower extremities. She does have pain to the lower back & buttock w/testing of the RLE. Medical Decision Making Impression and Plan Stable exam post op Begin gabapentin Joni Valdez MD Jan 30, 2018 23:56
[2018-01-31] VITALS: BP 178/92; PULSE 90; RESP 18; TEMP 98.3; O2SAT 93
[2018-01-31 04:00] VITALS: BP 171/95; PULSE 93; PULSE 99; RESP 18; TEMP 97.8; O2SAT 92
[2018-01-31] MEDS: ALPRAZolam 0.25 MG TAB PO PRN (04:40)
[2018-01-31] MEDS: CYCLOBENZAPRINE HCL 10 MG TAB PO PRN ×3 (04:40→17:55)
[2018-01-31] MEDS: oxyCODONE/ACETAMINOPHEN 10 MG/325 MG TAB PO PRN ×3 (06:26→15:32)
[2018-01-31 08:00] VITALS: BP 175/93; PULSE 108; PULSE 111; RESP 18; TEMP 97.7; O2SAT 94
[2018-01-31] MEDS: DOCUSATE SODIUM 50 MG/SENNA 8.6 MG TAB PO SCH (09:34)
[2018-01-31] MEDS: GABAPENTIN 300 MG CAP PO SCH ×3 (09:35→17:55)
[2018-01-31] MEDS: CALCIUM CARBONATE 500 MG CHEWABLE TAB CHEW SCH (09:35)
[2018-01-31] MEDS: LISINOPRIL 5 MG TAB PO SCH (09:35)
[2018-01-31] MEDS: PANTOPRAZOLE SOD 40 MG DELAYED RELEASE TAB PO SCH (09:35)
[2018-01-31] MEDS: amLODIPine BESYLATE 5 MG TAB PO SCH (09:35)
[2018-01-31] MEDS: DULoxetine HCl DR 60 MG CAP PO SCH (09:35)
[2018-01-31] MEDS: buPROPion HCL 150 MG SUSTAINED RELEASE TAB PO SCH (09:35)
[2018-01-31] MEDS: BUDESONIDE-FORMOTEROL 160/4.5 MCG INHALER INH SCH (09:36)
[2018-01-31] MEDS: SODIUM CHLORIDE 0.9% FLUSH 10 ML FLUSH IV FLUSH SCH (09:36)
[2018-01-31 12:00] VITALS: BP 138/89; PULSE 108; PULSE 95; RESP 18; TEMP 98.3; O2SAT 91
[2018-01-31] MEDS ORDERED: NEUR300C PO (14:11)
--- NOTE | 2018-01-31 14:12 | HHI.DCPOC ---
Discharge Care Plan Diagnosis: (1) Chronic gastritis (2) Lumbar radiculopathy Goals to Promote Your Health * To prevent worsening of your condition and complications * To maintain your health at the optimal level Directions to Meet Your Goals Take your medications as prescribed Follow your dietary instruction Follow activity as directed Keep your appointments as scheduled Take your immunizations and boosters as scheduled If your symptoms worsen call your PCP, if no PCP go to Urgent Care Center or Emergency Room Smoking is Dangerous to Your Health. Avoid second hand smoke Call the 24-hour hour crisis hotline for domestic abuse at Danie iMller MD Jan 31, 2018 14:12
--- NOTE | 2018-01-31 14:14 | HHI.DS ---
Discharge Summary Admission Date Jan 26, 2018 at 23:45 Discharge Date: Jan 31, 2018 Admitting Diagnosis SEVERE ANEMA, ACUTE BACK PAIN (1) Acute back pain ICD Code: M54.9 - Dorsalgia, unspecified Status: Acute (2) Chronic gastritis ICD Code: K29.50 - Unspecified chronic gastritis without bleeding (3) Severe anemia ICD Code: D64.9 - Anemia, unspecified Status: Acute (4) Lumbar radiculopathy ICD Code: M54.16 - Radiculopathy, lumbar region (5) Herniated nucleus pulposus, lumbar ICD Code: M51.26 - Other intervertebral disc displacement, lumbar region Procedures EGD: 1. There was LA Class C esophagitis noted; multiple biopsies were performed 2. Multiple small erosions were found at the gastroesophageal junction 3. There was chronic gastritis in the entire examined stomach; multiple biopsies were performed 4. Normal duodenal mucosa in the bulb and second portion of the duodenum 5. Retroflexion was performed and was normal Right L3 semi-laminectomy, discectomy, resection sequestered herniated nucleus pulposis Brief History - From Admission 62-year-old female with a past medical history significant for COPD, aortic stenosis, fibromyalgia, hypertension, GERD and migraines presents to the emergency department for evaluation of back pain. The patient reports she has had severe right-sided lower back pain that radiates down her right buttock and right leg for approximately 3 days. She reports associated insomnia secondary to the pain. She is moaning and writhing around in her bed. Lose all 4 extremities spontaneously. The patient was found to be severely anemic. She denies any weakness or dizziness. No shortness of breath or chest pain. Denies any dark tarry stools. Hemoccult negative in the ED. Does endorse a nosebleed 2 nights ago. Takes aspirin 325 daily. Denies nausea/vomiting. No lateralizing signs/symptoms. CBC/BMP: 01/30/18 0636 01/30/18 0636 Significant Findings Laboratory Tests Test 01/29/18 15:47 01/30/18 06:36 Red Blood Count 3.49 MIL/MM3 (4.00-5.30) 3.63 MIL/MM3 (4.00-5.30) Hemoglobin 9.6 GM/DL (11.6-15.3) 9.2 GM/DL (11.6-15.3) Hematocrit 27.0 % (35.0-46.0) 28.2 % (35.0-46.0) Mean Corpuscular Volume 77.3 FL (80.0-100.0) 77.7 FL (80.0-100.0) Red Cell Distribution Width 21.1 % (11.6-17.2) 21.6 % (11.6-17.2) Neutrophils (%) (Auto) 85.5 % (16.0-70.0) Lymphocytes (%) (Auto) 8.0 % (9.0-44.0) Neutrophils # (Auto) 8.2 TH/MM3 (1.8-7.7) Lymphocytes # (Auto) 0.8 TH/MM3 (1.0-4.8) Random Glucose 107 MG/DL (74-106) Calcium Level 7.6 MG/DL (8.5-10.1) 8.1 MG/DL (8.5-10.1) Estimat Glomerular Filtration Rate 66 ML/MIN (>89) 69 ML/MIN (>89) Mean Corpuscular Hemoglobin 25.5 PG (27.0-34.0) Platelet Count 486 TH/MM3 (150-450) Mean Platelet Volume 6.8 FL (7.0-11.0) Monocytes (%) (Auto) 10.2 % (0.0-8.0) Monocytes # (Auto) 1.0 TH/MM3 (0-0.9) Potassium Level 3.2 MEQ/L (3.5-5.1) Imaging Last Impressions Lumbar Spine X-Ray 01/29/18 0000 Signed Impressions: Service Date/Time: Monday, January 29, 2018 08:38 - CONCLUSION: Metallic marker projecting posterior to the L3-4 disc interspace. Jose Weber MD Lumbar Spine MRI 01/28/18 0000 Signed Impressions: Service Date/Time: January 07:50 - CONCLUSION: 1. Diffuse disc bulges with posterior element hypertrophy at L3-4 and L4-5 in combination with facet hypertrophy resulting moderate to moderately severe central spinal stenosis at both levels. This may be severe enough to compromise central nerve root at both levels. 2. In addition, broad-based, 7 mm right posterior disc protrusion at L3-4 with cephalad extrusion measuring approximately 2.3 cm in length. This fills the lateral recess and almost certainly compromises the right L3 and possibly right L4 nerve rootlets. 3. Heterogeneous appearance of the marrow signal throughout the lumbar vertebrae. Findings are nonspecific and could represent red marrow replacement in a smoker although diffuse metastatic disease cannot be excluded. If there is a clinical concern, bone scan could be performed for further characterization. Jose Weber MD Lumbar Spine CT 01/26/182133 Signed Impressions: Service Date/Time: Friday, January 26, 2018 03:02 - CONCLUSION: 1. No evidence of compression deformity or spondylolisthesis. 2. Spinal stenosis at the L3-4 level due to a combination of central disc protrusion and facet joint hypertrophy. Benito Lee MD PE at Discharge lying in bed, NAD, intact sensation to BL LEs to light touch, grossly intact ROM of BL extremities including hip and knee flexion and extension Pt update on day of discharge Slightly improved pain since admission. Clear for steroids from GI standpoint. Hospital Course Patient was admitted. Was found to be severely anemic with a hemoglobin around 5.9. Underwent transfusion with 2 units. GI was consulted, performed EGD which showed Chronic gastritis. Neurosurgery was also consulted and performed discectomy for sequestered herniated pulposus with some improvement in back pain. Patient's hemoglobin was holding steady and was deemed appropriate for a long-term facility. Patient was counseled extensively on the importance of refraining from nonsteroidal anti-inflammatory drugs. She was informed that we will downgrade her to a baby aspirin and that she should follow-up closely with her english language arts teacher in regards to this change given her history of aortic stenosis. Given her uncontrolled blood pressures, patient was additionally started on antihypertensive medication Patient has met maximal benefit from hospitalization and is clinically stable for discharge. Pt Condition on Discharge: Stable Discharge Disposition: Discharge to SNF Discharge Time: > 30 minutes Discharge Instructions Follow up Referrals: Cardiology - 1 Week with Wing Shaunna Lezama MD Gastroenterology - 2 Weeks with Phu Vilchis MD Neurosurgery - 2 Weeks with Joni Valdez MD PCP Follow-up New Medications: Amlodipine (Amlodipine) 2.5 Mg Tab 2.5 MG PO DAILY for Blood Pressure Management, #30 TAB 0 Refills Ascorbic Acid ER (Vitamin C ER) 500 Mg Byron 500 MG PO TID for Nutritional Supplement, #90 TAB [address] (Aspirin EC) 81 Mg Tabdr 81 MG PO DAILY for heart health, #30 TAB 0 Refills Ferrous Sulfate (Ferrous Sulfate) 325 Mg (65 Mg Iron) Tablet 325 MG PO TIDPC for Nutritional Supplement, #90 TAB 0 Refills Hydrocodone/Acetaminophen (Hydrocodone-Acetamin 10-325 mg) 10 Mg-325 Mg Tablet 1 TAB PO Q6HR PRN for PAIN SCALE 1 TO 10, #90 TAB 0 Refills Lisinopril (Lisinopril) 10 Mg Tab 10 MG PO DAILY, #30 TAB 0 Refills Alprazolam (Xanax) 0.25 Mg Tab 0.25 MG PO Q12HR PRN for ANXIETY, #60 TAB Gabapentin (Neurontin) 300 Mg Cap 300 MG PO TID for back pain, #90 CAP Pantoprazole (Pantoprazole) 40 Mg Tab 40 MG PO DAILY for gi bleed, #30 TAB Continued Medications: Biotin (Biotin) 1 Mg Tab 1000 MG PO DAILY, #1 BOTTLE Bupropion HCl ER 12 HR (Wellbutrin SR 12 HR) 150 Mg Tab 150 MG PO DAILY for Control Depression, TAB [address] (Duloxetine DR) 60 Mg Capdr 60 MG PO DAILY, #30 CAP 0 Refills Fluticasone-Salmeterol Inh (Advair Diskus Inh) 250-50 Mcg/Blist Aer 1 PUFF INH BID, #1 INHALER 0 Refills Rinse mouth after use. Discontinued Medications: Aspirin (Aspirin) 325 Mg Tab 325 MG PO DAILY, #30 TAB 0 Refills Hydrocodone-Acetaminophen (Hydrocodone-Acetaminophen) 10-325 mg Tab 1 TAB PO Q4H PRN for PAIN, TAB 0 Refills Lisinopril (Lisinopril) 5 Mg Tab 5 MG PO DAILY PRN for SBP>160, DBP>90, #30 TAB 0 Refills Methocarbamol (Robaxin) 750 Mg Tab 750 MG PO Q6HR for Muscle Spasm, #10 TAB 0 Refills Methylprednisolone Dosepak (Medrol Dosepak) 4 Mg Dspk 4 MG PO DIRECTED, #1 DSPK 0 Refills Per Pharmacist direction Tramadol (Tramadol) 50 Mg Tab 50 MG PO Q6H PRN for PAIN, #7 TAB 0 Refills Danie Miller MD Jan 31, 2018 14:14
[2018-01-31] MEDS ORDERED: DEXAMETHASONE SOD PHOS 4 MG/ML VIAL IV PUSH ONE (14:15)
[2018-01-31] MEDS ORDERED: AMLO2.5T PO (14:18)
[2018-01-31] MEDS ORDERED: ALPR.25 PO (14:18)
[2018-01-31] MEDS ORDERED: LISI10TA3 PO (14:18)
[2018-01-31] MEDS ORDERED: HYDR-3583 PO (14:55)
[2018-01-31] MEDS ORDERED: ASPI81TA23 PO (15:03)
[2018-01-31] MEDS ORDERED: AMLO5 PO (15:05)
[2018-01-31] MEDS ORDERED: FERR325T18 PO (15:41)
[2018-01-31] MEDS ORDERED: VITA500T83 PO (15:41)
[2018-01-31 16:00] VITALS: BP 157/92; PULSE 82; PULSE 97; RESP 18; TEMP 98.3; O2SAT 93
[2018-01-31] MEDS ORDERED: IRON SUCROSE INJ 100 MG in SODIUM CHLORIDE 0.9% INJ 100 ML IV ONE (16:00)
== END 2018-01-31 18:53 | DRG 982 ==
LOC: NEPD 18:12 → NEDA 23:45 → NEDH 01-27 03:45 → N04B 01-27 15:55
PROVIDERS: ADMIT Hospitalist; ATTEND Hospitalist
PROC: 30233N1 Transfusion of Nonautologous Red Blood Cells into Peripheral Vein, Percutaneous Approach (ICD-10-PCS; 2018-01-27)
PROC: 0DB38ZX Excision of Lower Esophagus, Via Natural or Artificial Opening Endoscopic, Diagnostic (ICD-10-PCS; 2018-01-28)
PROC: 0DB68ZX Excision of Stomach, Via Natural or Artificial Opening Endoscopic, Diagnostic (ICD-10-PCS; 2018-01-28)
PROC: 0ST20ZZ Resection of Lumbar Vertebral Disc, Open Approach (ICD-10-PCS; principal; 2018-01-29 07:22)
DX: D50.0 Iron deficiency anemia secondary to blood loss (chronic) (principal); K22.10 Ulcer of esophagus without bleeding; K25.9 Gastric ulcer, unspecified as acute or chronic, without hemorrhage or perforation; M51.16 Intervertebral disc disorders with radiculopathy, lumbar region; K21.0 Gastro-esophageal reflux disease with esophagitis; K29.50 Unspecified chronic gastritis without bleeding; E87.6 Hypokalemia; M79.7 Fibromyalgia; M48.061 Spinal stenosis, lumbar region without neurogenic claudication; I10 Essential (primary) hypertension; J44.9 Chronic obstructive pulmonary disease, unspecified; I35.0 Nonrheumatic aortic (valve) stenosis; G43.909 Migraine, unspecified, not intractable, without status migrainosus; G47.00 Insomnia, unspecified; F32.9 Major depressive disorder, single episode, unspecified; Z96.641 Presence of right artificial hip joint; Z79.82 Long term (current) use of aspirin; Z90.710 Acquired absence of both cervix and uterus; N20.0 Calculus of kidney; R93.2 Abnormal findings on diagnostic imaging of liver and biliary tract; F41.9 Anxiety disorder, unspecified; Z88.8 Allergy status to other drugs, medicaments and biological substances; Z79.899 Other long term (current) drug therapy
CPT/HCPCS: 36430; 72020; 72131; 72148; 76000; 80048; 81001; 82607; 82948; 83540; 83550; 85014; 85018; 85025; 85610; 85730; 86850; 86900; 86901; 86920; 87086; 88305; 88312; 93005; 96361; 96374; 96375; 99211; C9113; C9290; G0463; J0131; J1100; J1170; J1580; J1756; J2060; J2250; J2270; J2370; J2405; J2710; J3010; J7030; J7120; J7613; P9016